=== PATIENT | female | born 1950 | race Caucasian/White ===

== ENCOUNTER 2023-09-04 17:38 | Inpatient (IN) ==
--- NOTE | 2023-09-04 18:23 | XRay Report ---
XR chest 1V not portable HISTORY: 72 years-old Female Sepsis acute sepsis COMPARISON: None TECHNIQUE: PA view of the chest FINDINGS: Cardiac silhouette is enlarged. Mild linear subsegmental left basilar and right midlung atelectasis v ersus scarring. No pneumothorax, pleural effusion or airspace operation. Degenerative changes of the shoulders and spine. IMPRESSION: No acute process. ACT 112: Negative or not required by law. The above report was generated using voice recognition software. It may contain grammatical, syntax o r spelling errors. Electronically signed by: Sebastian Nicole M.D. 09/04/2023 6:22 PM
[2023-09-04 19:02] LABS: Basophils # (auto) 0.03 K/uL (0.00-0.20); Basophils % (auto) 0.3 %; Eosinophils # (auto) 0.09 K/uL (0.00-0.50); Eosinophils % (auto) 0.8 %; Hematocrit (blood only) 44.8 % (37.0-47.0); Hemoglobin 14.4 g/dl (12.0-16.0); Immature Granulocytes # (auto) 0.06 K/uL (0.01-0.20); Immature Granulocytes % (auto) 0.6 %; Lymphocytes # (auto) 1.04 K/uL (1.20-3.40); Lymphocytes % (auto) 9.6 %; Mean Corpuscular Hemoglobin 28.9 pg (25.0-34.0); Mean Corpuscular Hgb Conc 32.1 g/dL (32.0-36.0); Mean Platelet Volume 10.4 fL (9.4-12.4); Monocytes # (auto) 1.07 K/uL (0.11-0.59); Monocytes % (auto) 9.9 %; Neutrophils # (auto) 8.57 K/uL (1.40-6.50); Neutrophils % (auto) 78.8 %; Platelet Count 334 K/uL (130-400); RDW Coefficient of Variation 14.6 % (11.5-14.5); Red Blood Count 4.98 M/uL (4.20-5.40); White Blood Count 10.86 K/ul (4.8-10.8)
--- NOTE | 2023-09-04 19:22 | Emergency Department Note ---
Impression & Plan Cellulitis of right lower leg, COPD with acute exacerbation, Elevated troponin, Elevated brain natriuretic peptide (BNP) level, Renal insufficiency ED Provider Note NAME: DANIEL ORTIZ AGE: 72 SEX: F ARRIVES VIA: Walk-In INFORMANT: Patient ED PROVIDER(S): Naseem Shanks MD CHIEF COMPLAINT: Shortness of breath, skin infection, referred. PLAN: Disposition: Admit MEDICAL DECISION MAKING: The patient is a pleasant 72-year-old woman with a past medical history of COPD not on home oxygen, hypertension who presents to the emergency department via walk-in, referred by her PCP office after being seen today for shortness of breath over the past week worsening over the past several days not improving with her home nebulizer treatment as well as worsening redness, swelling and pain of her right lower leg. The patient denies any recent fevers, chills. She denies any significant sputum production but does feel increased tightness in her chest. She denies nausea, vomiting, diarrhea or urinary symptoms. Both the patient and her reports that her work of breathing is not normal for her. Of note, the patient did arrive to emergency department during time of high volume, acuity and prolonged emergency department waiting times. Critical pathways initiated from triage. On my evaluation the patient is no acute distress, afebrile with stable vital signs. O2 saturation is in the low 90s on room air. She has wheezes with prolonged expiratory phase of bilateral lung plata. She has an approximate 8 cm area of erythema warmth and tenderness of the right lower leg that is circumferential around the calf with surrounding pitting edema and induration. There is serous weeping without purulent drainage or discrete area of fluctuance. WBC 10.8 K, nonspecific with neutrophil predominance though no left shift. H/H and platelets within normal limits. Chemistry without metabolic acidosis. Creatinine 1.29 without prior for comparison. Lactic acid 1.3, within normal limits. Magnesium is 1.2 with IV repletion initiated. LFTs are unremarkable. Initial high-sensitivity troponin is 22.8 with delta 2-hour high-sensitivity troponin 22.1, essentially unchanged. BNP is elevated to 86, nonspecific but consistent with the patient's hypervolemic appearance. Procalcitonin was not elevated. Respiratory bio fire was negative. CTA of the chest was performed and was negative for PE. Note is made of small pericardial effusion that is likely incidental. Small left pleural effusion is noted. Given the patient's rapidly evolving right lower leg cellulitis patient does agree with plan for admission for further management. Blood culture had been obtained and empiric treatment initiated with Zosyn and daptomycin. Additional treatment for COPD flare provided with Solu-Medrol and DuoNeb. Given unilateral increased swelling of the right lower extremity right lower extremity ultrasound was ordered and is pending. Case was discussed with [place]. [place] [facility] [place], who will evaluate the patient for admission. US negative for DVT. Further management per admitting team. Triage Nursing notes reviewed and agree them. Prior/external medical records reviewed Vital Signs: reviewed Differential diagnosis: Cellulitis, abscess, MRSA infection, DVT, necrotizing fasciitis, dermatitis, drug eruption, allergic reaction, as well as other pathologies. ER treatment provided: See below. Diagnostics interpreted by me: ECG: Normal sinus rhythm, 77 bpm, no ectopy, no overt ST elevation or depression, QTc 4 2, QRS 68. Cardiac Monitoring: An order for continuous cardiac monitoring was placed and demonstrated Normal sinus rhythm, 77 bpm, no ectopy. Laboratory studies: See below Imaging studies: See below Consultation(s): Case was discussed with Dr. Hubbard [facility] [place], who will evaluate the patient for admission. HPI: The patient is a pleasant 72-year-old woman with a past medical history of COPD not on home oxygen, hypertension who presents to the emergency department via walk-in, referred by her PCP office after being seen today for shortness of breath over the past week worsening over the past several days not improving with her home nebulizer treatment as well as worsening redness, swelling and pain of her right lower leg. The patient denies any recent fevers, chills. She denies any significant sputum production but does feel increased tightness in her chest. She denies nausea, vomiting, diarrhea or urinary symptoms. Both the patient and her reports that her work of breathing is not normal for her. ROS: See above HPI for pertinent positives & negatives. A total of 10 systems reviewed and were otherwise negative. VITALS:See Below GENERAL: Awake, alert, fatigued-appearing, in no distress, BMI 44.4 HENT: Normocephalic, atraumatic. Oropharynx unremarkable. EYES: Normal conjunctiva. Sclera non-icteric. NECK: Supple. No nuchal rigidity. FROM. No JVD. RESPIRATORY: Wheezes with prolonged expiratory phase of bilateral lung plata. CARDIAC: Regular rate, normal rhythm. Extremities warm and well perfused. Pulses equal. ABDOMEN: Soft, non-distended. No tenderness to palpation. No rebound or guarding. No masses. RECTAL: Deferred. MUSCULOSKELETAL: Chest examination reveals no tenderness. The back is symmetrical on inspection without obvious abnormality. There is no CVA tenderness to palpation. No joint edema. LOWER EXTREMITIES: 2+ pitting edema of RLE with approximate 8 cm area of erythema warmth and tenderness of the right lower leg that is circumferential around the calf with surrounding pitting edema and induration. There is serous weeping without purulent drainage or discrete area of fluctuance. NEURO: Normal sensorium. No sensory or motor deficits noted. SKIN: No rash or jaundice noted. Naseem Shanks MD Past Med/Surg History Medical History Hypertension COPD (chronic obstructive pulmonary disease) Social History Smoking Status: Never smoker Hx Alcohol Use: No Hx Substance Use: No Preferred Language: Swedish Communication Ability: Effective Tree Killer Required: No Beliefs That Will Affect Care: None Current Living Situation: Spouse Feels Safe at Home: Yes Safety Concerns: Feels Safe At This Time Assistive Devices: Cane and Walker Allergies Allergies Allergy/AdvReac Type Severity Reaction Status Date / Time telmisartan [From Micardis] AdvReac Intermediate Gastrointestinal Unverified 09/04/23 20:19 Upset Home Meds Home Medications Medication Instructions Recorded Confirmed albuterol sulfate 90 mcg/actuation See Rx Instructions .Route .COMPLEX 09/04/23 09/04/23 aerosol inhaler allopurinol 100 mg tablet 100 mg PO DAILY 09/04/23 09/04/23 dapagliflozin propanediol 5 mg 5 mg PO DAILY 09/04/23 09/04/23 tablet (Farga) duloxetine 30 mg capsule,delayed 30 mg PO DAILY 09/04/23 09/04/23 release furosemide 20 mg tablet 20 mg PO DAILY PRN Fluid Retention 09/04/23 09/04/23 losartan 50 mg tablet 50 mg PO DAILY 09/04/23 09/04/23 metoprolol tartrate 50 mg tablet 50 mg PO BID 09/04/23 09/04/23 Results & Data (ED) Vital Signs Vital Signs - 24 hr 09/04/23 17:54 09/04/23 20:06 09/04/23 22:11 Temperature 36.9 C Temperature Source Temporal Artery Scan Pulse Rate 100 H Pulse Rate [Right Finger] 77 101 H Pulse Rate from SpO2 Sensor Respiratory Rate 24 19 22 Respiratory Effort / Characteristics Non-Labored Spontaneous Non-Labored Spontaneous Respiratory Depth Normal Normal Blood Pressure 174/85 H Blood Pressure [Right Arm] 156/97 H 137/100 Blood Pressure Mean 114 Blood Pressure Mean [Right Arm] 116 112 Blood Pressure Position [Right Arm] Semi-fowlers Pulse Oximetry 95 92 91 Oxygen Delivery Method Room Air Room Air Room Air Sepsis Recent Fever Within 48 Hours No Sepsis New/Unexplained Change in Mental Status N/A Sepsis Action Taken by Nursing No Action Required 09/04/23 23:01 09/05/23 00:00 Temperature Temperature Source Pulse Rate 109 H Pulse Rate [Right Finger] Pulse Rate from SpO2 Sensor 106 H Respiratory Rate 26 H Respiratory Effort / Characteristics Respiratory Depth Blood Pressure 130/99 Blood Pressure [Right Arm] Blood Pressure Mean 110 Blood Pressure Mean [Right Arm] Blood Pressure Position [Right Arm] Pulse Oximetry 92 Oxygen Delivery Method Sepsis Recent Fever Within 48 Hours Sepsis New/Unexplained Change in Mental Status Sepsis Action Taken by Nursing Laboratory Data Attestation: I reviewed the patient's lab results. 09/04/23 18:41 09/04/23 18:41 Lab Results 09/04/23 09/04/23 09/04/23 Range/Units 18:41 20:40 20:56 WBC 10.86 H (4.8-10.8) K/ul RBC 4.98 (4.20-5.40) M/uL Hgb 14.4 (12.0-16.0) g/dl POC Hgb 15.3 (12.0-16.0) g/dl Hct 44.8 (37.0-47.0) % POC Hct 45 (37-47) % MCV 90.0 (80.0-100.0) fL MCH 28.9 (25.0-34.0) pg MCHC 32.1 (32.0-36.0) g/dL RDW Std Deviation 48.0 H (36.4-46.3) fL RDW Coeff of Evan 14.6 H (11.5-14.5) % Plt Count 334 (130-400) K/uL MPV 10.4 (9.4-12.4) fL Immature Gran % (Auto) 0.6 % Neut % (Auto) 78.8 % Lymph % (Auto) 9.6 % [place] % (Auto) 9.9 % Eos % (Auto) 0.8 % Baso % (Auto) 0.3 % Neut # (Auto) 8.57 H (1.40-6.50) K/uL Lymph # (Auto) 1.04 L (1.20-3.40) K/uL [place] # (Auto) 1.07 H (0.11-0.59) K/uL Eos # (Auto) 0.09 (0.00-0.50) K/uL Baso # (Auto) 0.03 (0.00-0.20) K/uL Immature Gran # (Auto) 0.06 (0.01-0.20) K/uL PT 11.0 (9.0-12.0) Seconds INR 1.0 (0.9-1.1) APTT 27 (21-31) Seconds PTT Ratio 1.0 POC Sodium 140 (135-144) mmol/L Sodium 141 (136-145) mmol/L POC Potassium 4.6 (3.3-5.0) mmol/L Potassium 4.1 (3.5-5.1) mmol/L POC Chloride 99 L (101-112) mmol/L Chloride 100 (98-107) mmol/L Carbon Dioxide 29 (21-32) mmol/L POC Total CO2 34 H (24-31) mmol/L Anion Gap 12 H (3-11) POC Anion Gap 13.0 L (16-25) mmol/L POC BUN 25 H (7-18) mg/dl BUN 23 (6-23) mg/dl Creatinine 1.29 H (0.6-1.2) mg/dl POC Creatinine 1.3 (0.6-1.3) mg/dl Est Cr Clr Drug Dosing 48.6 ml/min Est GFR ( Amer) 48.2 ml/min Est GFR (Non-Af Amer) 41.6 ml/min BUN/Creatinine Ratio 17.8 (10-20) Glucose 103 H (70-99(Fasting)) mg/dl POC Glucose (other) 106 H (70-99) mg/dl Lactate 1.3 (0.4-2.0) mmol/L Calcium 10.2 (8.6-10.3) mg/dl POC Ioniz Calcium Felipe 1.14 (1.12-1.32) mmol/l Magnesium 1.2 L (1.7-2.4) mg/dl Total Bilirubin 0.6 (0.2-1.0) mg/dl AST 18 (13-39) U/L ALT 19 (7-52) U/L Alkaline Phosphatase 105 H (34-104) U/L Troponin I High Sens 22.8 H 22.1 H (0-14) pg/ml B-Natriuretic Peptide 286 H (0-100) pg/ml Total Protein 7.3 (6.0-8.3) gm/dl Albumin 3.8 (3.4-5.0) gm/dl Globulin 3.5 (2.5-4.0) gm/dl Albumin/Globulin Ratio 1.1 (0.9-2) Procalcitonin 0.07 (0-0.5) ng/ml Adenovirus (PCR) (NotDetected) B. pertussis DNA (PCR) (NotDetected) B.parapertussis DNA PCR (NotDetected) C. pneumoniae DNA (PCR) (NotDetected) Coronavirus OC43 (PCR) (NotDetected) Coronavirus HKU1 (PCR) (NotDetected) Coronavirus 229E (PCR) (NotDetected) SARS-CoV-2 (PCR) (NotDetected) Coronavirus NL63 (PCR) (NotDetected) Human Metapneumovir PCR (NotDetected) Influenza Type A (PCR) (NotDetected) Influenza Type B (PCR) (NotDetected) M. pneumoniae (PCR) (NotDetected) Parainfluenza 1 (PCR) (NotDetected) Parainfluenza 2 (PCR) (NotDetected) Parainfluenza 3 (PCR) (NotDetected) Parainfluenza 4 (PCR) (NotDetected) RSV (PCR) (NotDetected) Entero/Rhino (PCR) (NotDetected) 09/04/23 Range/Units 22:38 WBC (4.8-10.8) K/ul RBC (4.20-5.40) M/uL Hgb (12.0-16.0) g/dl POC Hgb (12.0-16.0) g/dl Hct (37.0-47.0) % POC Hct (37-47) % MCV (80.0-100.0) fL MCH (25.0-34.0) pg MCHC (32.0-36.0) g/dL RDW Std Deviation (36.4-46.3) fL RDW Coeff of Evan (11.5-14.5) % Plt Count (130-400) K/uL MPV (9.4-12.4) fL Immature Gran % (Auto) % Neut % (Auto) % Lymph % (Auto) % [place] % (Auto) % Eos % (Auto) % Baso % (Auto) % Neut # (Auto) (1.40-6.50) K/uL Lymph # (Auto) (1.20-3.40) K/uL [place] # (Auto) (0.11-0.59) K/uL Eos # (Auto) (0.00-0.50) K/uL Baso # (Auto) (0.00-0.20) K/uL Immature Gran # (Auto) (0.01-0.20) K/uL PT (9.0-12.0) Seconds INR (0.9-1.1) APTT (21-31) Seconds PTT Ratio POC Sodium (135-144) mmol/L Sodium (136-145) mmol/L POC Potassium (3.3-5.0) mmol/L Potassium (3.5-5.1) mmol/L POC Chloride (101-112) mmol/L Chloride (98-107) mmol/L Carbon Dioxide (21-32) mmol/L POC Total CO2 (24-31) mmol/L Anion Gap (3-11) POC Anion Gap (16-25) mmol/L POC BUN (7-18) mg/dl BUN (6-23) mg/dl Creatinine (0.6-1.2) mg/dl POC Creatinine (0.6-1.3) mg/dl Est Cr Clr Drug Dosing ml/min Est GFR ( Amer) ml/min Est GFR (Non-Af Amer) ml/min BUN/Creatinine Ratio (10-20) Glucose (70-99(Fasting)) mg/dl POC Glucose (other) (70-99) mg/dl Lactate (0.4-2.0) mmol/L Calcium (8.6-10.3) mg/dl POC Ioniz Calcium Felipe (1.12-1.32) mmol/l Magnesium (1.7-2.4) mg/dl Total Bilirubin (0.2-1.0) mg/dl AST (13-39) U/L ALT (7-52) U/L Alkaline Phosphatase (34-104) U/L Troponin I High Sens 22.2 H (0-14) pg/ml B-Natriuretic Peptide (0-100) pg/ml Total Protein (6.0-8.3) gm/dl Albumin (3.4-5.0) gm/dl Globulin (2.5-4.0) gm/dl Albumin/Globulin Ratio (0.9-2) Procalcitonin (0-0.5) ng/ml Adenovirus (PCR) Not Detected (NotDetected) B. pertussis DNA (PCR) Not Detected (NotDetected) B.parapertussis DNA PCR Not Detected (NotDetected) C. pneumoniae DNA (PCR) Not Detected (NotDetected) Coronavirus OC43 (PCR) Not Detected (NotDetected) Coronavirus HKU1 (PCR) Not Detected (NotDetected) Coronavirus 229E (PCR) Not Detected (NotDetected) SARS-CoV-2 (PCR) Not Detected (NotDetected) Coronavirus NL63 (PCR) Not Detected (NotDetected) Human Metapneumovir PCR Not Detected (NotDetected) Influenza Type A (PCR) Not Detected (NotDetected) Influenza Type B (PCR) Not Detected (NotDetected) M. pneumoniae (PCR) Not Detected (NotDetected) Parainfluenza 1 (PCR) Not Detected (NotDetected) Parainfluenza 2 (PCR) Not Detected (NotDetected) Parainfluenza 3 (PCR) Not Detected (NotDetected) Parainfluenza 4 (PCR) Not Detected (NotDetected) RSV (PCR) Not Detected (NotDetected) Entero/Rhino (PCR) Not Detected (NotDetected) Administered Medications Acetaminophen (Acetaminophen 325 Mg Tab) 650 mg PO Q4H PRN PRN Reason: pain/fever Stop: 10/05/23 00:13 Last Admin: 09/05/23 10:55 Dose: 650 mg Documented By: Admin: 09/05/23 02:45 Dose: 650 mg Documented By: PLF Albuterol (Albut/Ipratrop 3mg/0.5mg Neb 3 Ml Vial) 3 ml NEB Q4R PRN; Protocol PRN Reason: Shortness Of Breath Or Wheezing Stop: 10/05/23 02:59 Last Admin: 09/05/23 06:27 Dose: 3 ml Documented By: PEDRO LUIS Allopurinol (Allopurinol 100 Mg Tab) 100 mg PO DAILY [facility] Stop: 10/05/23 08:59 Last Admin: 09/05/23 08:09 Dose: 100 mg Documented By: SEBASTIEN Azithromycin (Azithromycin 250 Mg Tab) 250 mg PO QAM [facility] Stop: 09/12/23 08:59 Last Admin: 09/05/23 08:08 Dose: 250 mg Documented By: SEBASTIEN Duloxetine HCl (Duloxetine Hcl 30 Mg Cap) 30 mg PO DAILY [facility] Stop: 10/05/23 08:59 Last Admin: 09/05/23 08:09 Dose: 30 mg Documented By: SEBASTIEN Enoxaparin Sodium (Enoxaparin Inj 40 Mg/0.4 Ml Syr) 40 mg SQ QAM [facility] Stop: 10/05/23 08:59 Last Admin: 09/05/23 08:09 Dose: 40 mg Documented By: SEBASTIEN Daptomycin 450 mg/ Syringe 9 mls @ 4.5 mls/min IV Q24H [facility]; Protocol Stop: 09/06/23 20:29 Last Admin: 09/04/23 21:29 Dose: 4.5 mls/min Documented By: Losartan Potassium (Losartan Potassium 50 Mg Tab) 50 mg PO DAILY [facility] Stop: 10/05/23 08:59 Last Admin: 09/05/23 08:09 Dose: 50 mg Documented By: SEBASTIEN Metoprolol Tartrate (Metoprolol Tartrate 50 Mg Tab) 50 mg PO BID [facility] Stop: 10/05/23 08:59 Last Admin: 09/05/23 08:09 Dose: 50 mg Documented By: SEBASTIEN Miscellaneous (Order Awaiting Action: Dapagliflozin Propanediol [Farxiga] 5 Mg Table) 1 each N/A QS [facility] Stop: 10/05/23 07:59 Last Admin: 09/05/23 07:37 Dose: Not Given Documented By: SEBASTIEN Prednisone (Prednisone 20 Mg Tab) 60 mg PO DAILY [facility] Stop: 10/05/23 08:59 Last Admin: 09/05/23 08:09 Dose: 60 mg Documented By: SEBASTIEN Discontinued Medications Albuterol (Albut/Ipratrop 3mg/0.5mg Neb 3 Ml Vial) 3 ml NEB NOW STA; Protocol Stop: 09/04/23 20:31 Last Admin: 09/04/23 20:49 Dose: 3 ml Documented By: Piperacillin Sod/Tazobactam Sod (Zosyn) 4.5 gm in 100 mls @ 200 mls/hr IV NOW ONE Stop: 09/04/23 20:59 Last Infusion: 09/04/23 21:42 Dose: Infused Documented By: Admin: 09/04/23 20:52 Dose: 200 mls/hr Documented By: Magnesium Sulfate/Dextrose (Magnesium Sulfate / D5w) 1 gm in 100 mls @ 100 mls/hr IV Q1H [facility] Stop: 09/05/23 01:04 Last Infusion: 09/05/23 01:47 Dose: Infused Documented By: Admin: 09/05/23 00:14 Dose: 100 mls/hr Documented By: Infusion: 09/05/23 00:14 Dose: Infused Documented By: Admin: 09/04/23 23:19 Dose: 100 mls/hr Documented By: TOO Ioversol (Optiray 320 125ml) 117 ml IV ONCE ONE Stop: 09/04/23 21:44 Last Admin: 09/04/23 21:44 Dose: 117 ml Documented By: NIKOLAY Methylprednisolone (Methylprednisolone 125 Mg/2 Ml Vial) 125 mg IV NOW STA Stop: 09/04/23 20:31 Last Admin: 09/04/23 20:49 Dose: 125 mg Documented By: Imaging Data Radiologist's Impression: Chest X-Ray 09/04/23 17:56 XR chest 1V not portable HISTORY: 72 years-old Female Sepsis acute sepsis COMPARISON: None TECHNIQUE: PA view of the chest FINDINGS: Cardiac silhouette is enlarged. Mild linear subsegmental left basilar and right midlung atelectasis versus scarring. No pneumothorax, pleural effusion or airspace operation. Degenerative changes of the shoulders and spine. IMPRESSION: No acute process. ACT 112: Negative or not required by law. The above report was generated using voice recognition software. It may contain grammatical, syntax or spelling errors. Electronically signed by: Sebastian Nicole M.D. 09/04/2023 6:22 PM Chest CTA 09/04/23 20:30 Exam(s): CTA CHEST IV Amt: 117 ml optiray 320 EXAM: CT Angiography Chest With Intravenous Contrast CLINICAL HISTORY: Reason for exam: sob, r/o PE. TECHNIQUE: Axial computed tomographic angiography images of the chest with intravenous contrast. CTDI is 37.9 mGy and DLP is 824.87 mGy-cm. Automated exposure control was utilized for the study. A dose lowering technique was utilized adhering to the principles of ALARA. MIP reconstructed images were created and reviewed. COMPARISON: No relevant prior studies available. FINDINGS: Pulmonary arteries: Unremarkable. No acute pulmonary embolism. Aorta: Atherosclerotic changes of the aorta. No thoracic aortic aneurysm. Lungs: Atelectasis at the lung bases. No mass. Pleural space: Small LEFT pleural effusion. No pneumothorax. Heart: Small pericardial effusion. Cardiomegaly. No evidence of RV dysfunction. Bones/joints: Degenerative changes of the spine. No acute fracture. No dislocation. Soft tissues: Unremarkable. Lymph nodes: Unremarkable. No enlarged lymph nodes. IMPRESSION: 1. No acute pulmonary embolism. 2. Small pericardial effusion. 3. Small LEFT pleural effusion. Electronically signed by: Coy Tavarez MD 09/04/23 22:08 PM Discharge Plan Visit Data Chief Complaint: Swelling/Edema to Extremity Stated Complaint: OXYGEN/80, LOWER RT LEG BLISTERS/PAIN/EDEMA ED Provider: Naseem Shanks Discharge Problem: Cellulitis of right lower leg, COPD with acute exacerbation, Elevated troponin, Elevated brain natriuretic peptide (BNP) level, Renal insufficiency Patient Disposition: Admitted As Inpatient Discharge Instructions Interventions: ED Discharge Assessment Last Done: 09/05/23 02:44
[2023-09-04 19:27] LABS: Partial Thromboplastin Time 27 Seconds (21-31)
[2023-09-04] MEDS ORDERED: methylPREDNISolone 125 MG/2 ML VIAL IV STA (20:30)
[2023-09-04] MEDS ORDERED: ALBUT/IPRATROP 3MG/0.5MG NEB 3 ML VIAL NEB STA (20:30)
[2023-09-04] MEDS ORDERED: PIPERACILLIN/TAZOBACTAM 4.5 GM/100 ML BAG IV ONE (20:30)
[2023-09-04 21:12] LABS: iSTAT Creatinine 1.3 mg/dl (0.6-1.3); iSTAT Hemoglobin 15.3 g/dl (12.0-16.0); iSTAT Ionized Calcium 1.14 mmol/l (1.12-1.32); iSTAT Potassium 4.6 mmol/L (3.3-5.0)
[2023-09-04] MEDS: DAPTOmycin 450 MG in SYRINGE 0 ML IV SCH (21:29)
[2023-09-04 21:39] LABS: Albumin Level 3.8 gm/dl (3.4-5.0); Bilirubin,Total 0.6 mg/dl (0.2-1.0); Calcium 10.2 mg/dl (8.6-10.3); Magnesium 1.2 mg/dl (1.7-2.4); Potassium 4.1 mmol/L (3.5-5.1)
[2023-09-04] MEDS ORDERED: OPTIRAY 320 125ml IV ONE (21:43)
[2023-09-04 21:45] LABS: Albumin Globulin Ratio 1.1 (0.9-2); BUN Creatinine Ratio 17.8 (10-20); Creatinine Clr Calc Pharmacy 48.6 ml/min; Est GFR (African American) 48.2 ml/min; Est GFR (Non-African American) 41.6 ml/min; Globulin 3.5 gm/dl (2.5-4.0); Total Protein 7.3 gm/dl (6.0-8.3)
[2023-09-04 22:04] LABS: Troponin I High Sensitivity 22.8 pg/ml (0-14)
--- NOTE | 2023-09-04 22:09 | CT Scan Report ---
Exam(s): CTA CHEST IV Amt: 117 ml optiray 320 EXAM: CT Angiography Chest With Intravenous Contrast CLINICAL HISTORY: Reason for exam: sob, r/o PE. TECHNIQUE: Axial computed tomographic angiography images of the chest with intravenous contrast. CTDI is 37.9 mGy and DLP is 824.87 mGy-cm. Automated exposure control was utilized for the study. A dose lowering technique was utilized adhering to the principles of ALARA. MIP reconstructed images were created and reviewed. COMPARISON: No relevant prior studies available. FINDINGS: Pulmonary arteries: Unremarkable. No acute pulmonary embolism. Aorta: Atherosclerotic changes of the aorta. No thoracic aortic aneurysm. Lungs: Atelectasis at the lung bases. No mass. Pleural space: Small LEFT pleural effusion. No pneumothorax. Heart: Small pericardial effusion. Cardiomegaly. No evidence of RV dysfunction. Bones/joints: Degenerative changes of the spine. No acute fracture. No dislocation. Soft tissues: Unremarkable. Lymph nodes: Unremarkable. No enlarged lymph nodes. IMPRESSION: 1. No acute pulmonary embolism. 2. Small pericardial effusion. 3. Small LEFT pleural effusion. Electronically signed by: Coy Tavarez MD 09/04/23 22:08 PM
[2023-09-04] MEDS: MAGNESIUM SULFATE / D5W 1 GM/100 ML BAG IV SCH (23:19)
[2023-09-04 23:37] LABS: Adenovirus PCR Not Detected (NotDetected); Bordetella parapertussis PCR Not Detected (NotDetected); Bordetella pertussis PCR Not Detected (NotDetected); Chlamydia pneumoniae PCR Not Detected (NotDetected); Coronavirus 229E PCR Not Detected (NotDetected); Coronavirus CoV-2 (COVID19)PCR Not Detected (NotDetected); Coronavirus HKU1 PCR Not Detected (NotDetected); Coronavirus NL63 PCR Not Detected (NotDetected); Coronavirus OC43PCR Not Detected (NotDetected); Human Metapneumovirus PCR Not Detected (NotDetected); Influenza A PCR Not Detected (NotDetected); Influenza B PCR Not Detected (NotDetected); Mycoplasma pneumoniae PCR Not Detected (NotDetected); Parainfluenza Virus 1 PCR Not Detected (NotDetected); Parainfluenza Virus 2 PCR Not Detected (NotDetected); Parainfluenza Virus 3 PCR Not Detected (NotDetected); Parainfluenza Virus 4 PCR Not Detected (NotDetected); Respiratory Syncytial VirusPCR Not Detected (NotDetected); Rhinovirus/Enterovirus PCR Not Detected (NotDetected)
--- NOTE | 2023-09-04 23:42 | History & Physical Report ---
Date of Service September 04, 2023 Assessment & Plan (1) COPD with acute exacerbation: Plan: Pt is a 72 yo female with PMH of COPD, fluid retention, CKD (stage unknown), and HTN presenting due to increasing SOB and right LE infection. Right LE cellulitis - began in July with small blister - per pt, was dx with DM many years ago and was on metformin for 10 yrs; she was then told she was not diabetic and the metformin is what caused her kidney decline - xrays ordered to look for signs of osteo d/t length of infection - RLE doppler ordered to r/o DVT - s/p zosyn and dapto in the ER; will continue dapto upon admission pending woun d and blood cx - will defer diuresis until response of antibiotic noted; may need diuresis if RLE does not improve as expected with ABX therapy COPD exacerbation - acute on chronic, no PFTs available - per pt, hx of recent PNA in Jul 2023 treated with doxycycline - no prior hospitalizations for COPD per pt - CXR WNL; chest CTA showed small left pleural effusion, no signs of PNA - RVP neg - WBC 10.86, procal 0.07, BNP 286; do not suspect active pulmonary bacterial infection - continue with duoneb PRN, prednisone daily, and azithromycin x5 days - encouraged outpatient discussion with PCP to determine if pt needs PFTs and/or addition of controller inhaler Elevated trop - stable at 22 after 3 draws - suspect demand ischemia in the setting of COPD exacerbation - will recheck in AM to ensure downtrending HTN - continue home losartan 50 mg, metoprolol 50 mg BID CKD - unsure of stage - Cr 1.29 upon admission - continue home farxiga - trend BMP Hypomagnesemia - 1.2 upon admission - repleted with 2g in ER - recheck in AM Hx of gout - continue allopurinol 100 mg daily Depression - continue home duloxetine 30 mg daily Diet: heart healthy VTE ppx: lovenox Code: full Dispo: admit to med/surg (2) Cellulitis of right lower leg: (3) Elevated troponin: (4) Renal insufficiency: (5) Depression: (6) Gout: History of Present Illness Chief Complaint: SOB, RLL infection Primary Care Provider: Diogo Johnston Pt is a 72 yo female with PMH of COPD, fluid retention, CKD (stage unknown), and HTN presenting due to increasing SOB and right LE infection. Pt explains that she has been dealing with COPD for many years. In July, she was hospitalized for SOB and found to have pneumonia. This was treated with doxycycline. About 2-3 weeks ago, she noticed an increase in her SOB. It gets worse with activity, but she says she is not that active. It has progressively gotten worse. She does use nebulized and inhaled albuterol at home. No other inhalers. She does not use oxygen at home. She has never smoked. She has never been hospitalized for her COPD before. During her hospitalization in July, it was noted that she had a small blister on RLE. She was told not to break this. After she was discharged home, she woke up one morning and noticed that the blister had spread across the entire front of her leg. It was accidentally broken after she bumped her leg on her walker. Since then, the redness and drainage has spread. It is slightly painful. She believes this infection may be in relation to not taking her water pill for 11 days (she takes it as needed as to not harm her kidneys). In the ER, pt was hemodynamically stable with minimal tachycardia (100). Pt received methylpred 125mg x1, duoneb x1, zosyn x1, and dapto x1. She was also given mag 1g x2. Allergies Allergy/AdvReac Type Severity Reaction Status Date / Time telmisartan [From Micardis] AdvReac Intermediate Gastrointestinal Unverified 09/04/23 20:19 Upset Home Medications Medication Instructions Recorded Confirmed Type albuterol sulfate 90 mcg/actuation See Rx Instructions .Route .COMPLEX 09/04/23 09/04/23 History aerosol inhaler allopurinol 100 mg tablet 100 mg PO DAILY 09/04/23 09/04/23 History dapagliflozin propanediol 5 mg 5 mg PO DAILY 09/04/23 09/04/23 History tablet (Farxiga) duloxetine 30 mg capsule,delayed 30 mg PO DAILY 09/04/23 09/04/23 History release furosemide 20 mg tablet 20 mg PO DAILY PRN Fluid Retention 09/04/23 09/04/23 History losartan 50 mg tablet 50 mg PO DAILY 09/04/23 09/04/23 History metoprolol tartrate 50 mg tablet 50 mg PO BID 09/04/23 09/04/23 History Past Med/Surg History Medical History Hypertension COPD (chronic obstructive pulmonary disease) Social History Smoking Status: Never smoker Hx Alcohol Use: No Hx Substance Use: No Preferred Language: Ghanaian Communication Ability: Effective Peanut Blancher Required: No Beliefs That Will Affect Care: None Current Living Situation: Spouse Feels Safe at Home: Yes Safety Concerns: Feels Safe At This Time Assistive Devices: Cane and Walker Review of Systems Review of Systems: As per HPI Physical Exam Physical Exam: Constitutional: well appearing, no acute distress HEENT: normocephalic, no conjunctival injection CV: RRR, no murmur, no LE edema Respiratory: CTA bilaterally but decreased breath sounds throughout. No rhonchi, wheezes, or crackles. No increased work of breathing GI: soft, nondistended, nontender, + bowel sounds MSK: no gross deformities noted Skin: RLE edema and erythema noted from ankle to mid calf. Serous drainage noted w/ scattered purulence. Neuro: alert, oriented, no FND noted Psych: mood and affect congruent Results & Data Results & Data Vital Signs (Past 12 Hours) Vital Signs Temp Pulse Pulse Resp BP BP Pulse Ox 09/04/23 22:11 101 H 22 137/100 91 09/04/23 20:06 77 19 156/97 H 92 09/04/23 17:54 36.9 C 100 H 24 174/85 H 95 O2 Del Method 09/04/23 22:11 Room Air 09/04/23 20:06 Room Air 09/04/23 17:54 Room Air Supervising Physician Co-Signing Physician Notes Attending addendum: I have physically seen this patient, have supervised the medical residents activities, and agree with the H&P unless as otherwise noted. Assessment and Plan: COPD exacerbation- Recent pneumonia in 08/04 treated with doxycycline Duonebs every 4 hours while awake and every 2 hours when necessary. Azithromycin 500 mg IV daily Prednisone taper Right lower extremity cellulitis- Continue daptomycin IV and Zosyn IV begun in the ED Right lower extremity Doppler ordered to assess for possible DVT Order x-rays to assess for possible osteo myelitis May need diuresis to further improvement Elevated troponin/hypertension- Troponin 22.2 on admission, with repeat pending Continue losartan and metoprolol as noted Remaining orders and notations as noted Resident Activity Tracking Resident Involvement: Resident Care Provided Care Provided: Adult Hospital Medicine
[2023-09-05] MEDS ORDERED: POLYETHYLENE (MIRALAX) 17 GM PACK PO PRN (00:14)
[2023-09-05] MEDS: MAGNESIUM SULFATE / D5W 1 GM/100 ML BAG IV SCH ×3 (00:14→17:27)
[2023-09-05] MEDS ORDERED: ONDANSETRON INJ 2 MG/ML 2 ML VIAL IV PRN (00:14)
[2023-09-05] MEDS ORDERED: ALBUT/IPRATROP 3MG/0.5MG NEB 3 ML VIAL NEB PRN (00:14)
[2023-09-05] MEDS ORDERED: MELATONIN 3 MG TAB PO PRN (00:14)
--- NOTE | 2023-09-05 01:54 | Ultrasound Report ---
Exam(s): US VENOUS RIGHT LOWER EXTREMITY EXAM: US Duplex Right Lower Extremity Veins CLINICAL HISTORY: Reason for exam: RLE edema. TECHNIQUE: Real-time duplex ultrasound scan of the right lower extremity veins integrating B-mode two-dimensional vascular structure, Doppler spectral analysis, color flow Doppler imaging and compression. COMPARISON: No relevant prior studies available. FINDINGS: Deep veins: Unremarkable. No DVT in the visualized common femoral, femoral, proximal deep femoral or popliteal veins. The veins demonstrate normal color flow, are normally compressible, with normal phasic flow and/or augmentation response. Soft tissues: No acute findings. No popliteal cyst. IMPRESSION: No evidence of the right lower extremity deep venous thrombosis. Electronically signed by: Erick Hwang M.D. 09/05/23 01:53 AM
[2023-09-05] MEDS: ACETAMINOPHEN 325 MG TAB PO PRN ×3 (02:45→18:05)
[2023-09-05] MEDS ORDERED: MICONAZOLE NITRATE POWDER 85 GM EXT PRN (05:42)
--- NOTE | 2023-09-05 06:50 | XRay Report ---
XR tibia fibula RT 2V CLINICAL HISTORY: cellulitis, r/o osteo COMPARISON: None FINDINGS: No fracture within the right tibia or fibula is identified. No bony erosions are present. Moderate to severe tricompartmental osteoarthritis within the right knee is present. This is most pro nounced within the medial and patellofemoral compartments. Diffuse right lower leg soft tissue swelli ng is present. There is no radiographic evidence for soft tissue gas. IMPRESSION: 1. No evidence for osteomyelitis within the right tibia or fibula. 2. Diffuse right lower leg soft tissue swelling. ACT 112: Negative or not required by law. Electronically signed by: Agustin Del Rio M.D. 09/05/2023 6:49 AM
--- NOTE | 2023-09-05 07:49 | XRay Report ---
XR ankle RT min 3V routine HISTORY: 72 years-old Female cellulitis, r/o osteo acute pain and swelling of the right ankle and lo wer leg COMPARISON: Tibia and fibular radiographs of same day TECHNIQUE: 3 views of the right ankle FINDINGS: Diffuse soft tissue swelling. There is mild osteoarthritis of the ankle with moderate osteoarthritis of the midfoot. No acute fracture, dislocation or osseous erosion. Arterial calcifications. IMPRESSION: 1. No acute osseous abnormality. 2. Diffuse soft tissue swelling. ACT 112: Negative or not required by law. The above report was generated using voice recognition software. It may contain grammatical, syntax o r spelling errors. Electronically signed by: Sebastian Nicole M.D. 09/05/2023 7:47 AM
[2023-09-05] MEDS: AZITHROMYCIN 250 MG TAB PO SCH (08:08)
[2023-09-05] MEDS: allopurinoL 100 MG TAB PO SCH (08:09)
[2023-09-05] MEDS: LOSARTAN POTASSIUM 50 MG TAB PO SCH (08:09)
[2023-09-05] MEDS: ENOXAPARIN INJ 40 MG/0.4 ML SYR SQ SCH (08:09)
[2023-09-05] MEDS: DULoxetine HCL 30 MG CAP PO SCH (08:09)
[2023-09-05] MEDS: predniSONE 20 MG TAB PO SCH (08:09)
[2023-09-05] MEDS: METOPROLOL TARTRATE 50 MG TAB PO SCH ×2 (08:09→20:02)
[2023-09-05 09:57] LABS: Appearance Urine Clear (Clear); Bilirubin Urine Negative (Negative); Blood Urine Negative (Negative); Color Urine Yellow; Epithelial Cell Urine Auto >30 /lpf (0-5); Glucose Urine UA 2+ (Negative); Ketones Urine Negative (Negative); Leukocyte Esterase Urine Negative (Negative); Nitrite Urine Negative (Negative); Protein Urine Trace (Negative); RBC Urine Automated 0-4 /hpf (0-4); Specific Gravity Urine > 1.045 (1.000-1.030); Urobilinogen Urine Negative (Negative)
[2023-09-05 10:24] LABS: Bacteria Urine Automated 1+ (Negative)
--- NOTE | 2023-09-05 11:22 | Electrocardiogram Report ---
Test Reason : Blood Pressure : / mmHG Vent. Rate : 077 BPM Atrial Rate : 077 BPM P-R Int : 130 ms QRS Dur : 068 ms QT Int : 356 ms P-R-T Axes : 002 -25 010 degrees QTc Int : 402 ms Normal sinus rhythm Normal ECG No previous ECGs available Confirmed by Jaylon Soler ([id number]) on 09/05/2023 11:21:43 AM Referred By: REFERRED SELF Confirmed By:Derrell Soler
--- NOTE | 2023-09-05 15:40 | Hospitalist Progress Note ---
Date of Service September 05, 2023 Assessment & Plan (1) Cellulitis of right lower leg: (2) COPD with acute exacerbation: (3) Elevated troponin: (4) Elevated brain natriuretic peptide (BNP) level: (5) Renal insufficiency: (6) Depression: (7) Gout: Plan Right LE cellulitis - began in July with small blister - per pt, was dx with DM many years ago and was on metformin for 10 yrs; she was then told she was not diabetic and the metformin is what caused her kidney decline - xrays negative for osteomyelitis - RLE doppler ruled out DVT - s/p zosyn and dapto in the ER; now on daptomycin Blood cultures and wound culture pending Improving with antibiotics Improved swelling, redness, pain COPD exacerbation - acute on chronic, no PFTs available - per pt, hx of recent PNA in Jul 2023 treated with doxycycline - no prior hospitalizations for COPD per pt - CXR WNL; chest CTA showed small left pleural effusion, no signs of PNA - RVP neg - WBC 10.86, procal 0.07, BNP 286; do not suspect active pulmonary bacterial infection - continue with duoneb PRN, prednisone daily, and azithromycin x5 days - encouraged outpatient discussion with PCP to determine if pt needs PFTs and/or addition of controller inhaler Elevated trop - stable at 22 after 3 draws - suspect demand ischemia in the setting of COPD exacerbation HTN - continue home losartan 50 mg, metoprolol 50 mg BID CKD - unsure of stage - Cr 1.29 upon admission - continue home farxiga - trend BMP Hypomagnesemia - 1.2 upon admission - repleted with 2g in ER Repleted with another 2 g today No a.m. labs available today - recheck in AM Hx of gout - continue allopurinol 100 mg daily Depression - continue home duloxetine 30 mg daily Diet: heart healthy VTE ppx: lovenox Code: full Admission and Anticipated Discharge Date Admission Date: September 05, 2023 Subjective Patient says that her right leg is feeling much better. She feels much better overall as well. Denies chest pain, shortness of breath. Review of Systems Review of Systems: All systems reviewed & are unremarkable except as noted in Subjective Physical Exam Physical Exam: General: Awake, conversant Heart: S1, S2/regular rate and rhythm, no murmur rubs or gallops Lungs: Diminished breath sounds bilaterally. No wheezing heard.. Normal effort Abdomen: Soft/nontender/nondistended. No hepatosplenomegaly Extremities: No clubbing/cyanosis. No edema on the left leg. Right leg is red and inflamed looking. However fading is noted towards the margin. Behavior: Appropriate, cooperative Results & Data Results & Data Vital Signs (Past 12 Hours) Vital Signs Temp Pulse Resp BP Pulse Ox O2 Del Method O2 Flow Rate 09/05/23 09:41 Nasal Cannula 4 09/05/23 07:25 36.7 C 122 H 18 150/80 H 93 Nasal Cannula 3 09/05/23 06:30 106 H 22 93 Nasal Cannula 4 09/05/23 06:20 103 H 93 Nasal Cannula 4 09/05/23 06:17 36.7 C 118 H 20 156/96 H 92 Nasal Cannula 4 Laboratory Results Abnormal lab results 09/04/23 09/04/23 09/04/23 Range/Units 18:41 20:40 20:56 WBC 10.86 H (4.8-10.8) K/ul RDW Std Deviation 48.0 H (36.4-46.3) fL RDW Coeff of Evan 14.6 H (11.5-14.5) % Neut # (Auto) 8.57 H (1.40-6.50) K/uL Lymph # (Auto) 1.04 L (1.20-3.40) K/uL [place] # (Auto) 1.07 H (0.11-0.59) K/uL POC Chloride 99 L (101-112) mmol/L POC Total CO2 34 H (24-31) mmol/L Anion Gap 12 H (3-11) POC Anion Gap 13.0 L (16-25) mmol/L POC BUN 25 H (7-18) mg/dl Creatinine 1.29 H (0.6-1.2) mg/dl Glucose 103 H (70-99(Fasting)) mg/dl POC Glucose (other) 106 H (70-99) mg/dl Magnesium 1.2 L (1.7-2.4) mg/dl Alkaline Phosphatase 105 H (34-104) U/L Troponin I High Sens 22.8 H 22.1 H (0-14) pg/ml B-Natriuretic Peptide 286 H (0-100) pg/ml Ur Specific [place] (1.000-1.030) Urine Protein (Negative) Urine Glucose (UA) (Negative) U Epithel Cells (Auto) (0-5) /lpf Urine Bacteria (Auto) (Negative) 09/04/23 09/05/23 09/05/23 Range/Units 22:38 07:06 08:23 WBC (4.8-10.8) K/ul RDW Std Deviation (36.4-46.3) fL RDW Coeff of Evan (11.5-14.5) % Neut # (Auto) (1.40-6.50) K/uL Lymph # (Auto) (1.20-3.40) K/uL [place] # (Auto) (0.11-0.59) K/uL POC Chloride (101-112) mmol/L POC Total CO2 (24-31) mmol/L Anion Gap (3-11) POC Anion Gap (16-25) mmol/L POC BUN (7-18) mg/dl Creatinine (0.6-1.2) mg/dl Glucose (70-99(Fasting)) mg/dl POC Glucose (other) (70-99) mg/dl Magnesium (1.7-2.4) mg/dl Alkaline Phosphatase (34-104) U/L Troponin I High Sens 22.2 H 21.4 H (0-14) pg/ml B-Natriuretic Peptide (0-100) pg/ml Ur Specific [place] > 1.045 H (1.000-1.030) Urine Protein Trace H (Negative) Urine Glucose (UA) 2+ H (Negative) U Epithel Cells (Auto) >30 H (0-5) /lpf Urine Bacteria (Auto) 1+ H (Negative) Diagnostic Findings Chest X-Ray 09/04/23 17:56 XR chest 1V not portable HISTORY: 72 years-old Female Sepsis acute sepsis COMPARISON: None TECHNIQUE: PA view of the chest FINDINGS: Cardiac silhouette is enlarged. Mild linear subsegmental left basilar and right midlung atelectasis versus scarring. No pneumothorax, pleural effusion or airs pace operation. Degenerative changes of the shoulders and spine. IMPRESSION: No acute process. ACT 112: Negative or not required by law. The above report was generated using voice recognition software. It may contain grammatical, syntax or spelling errors. Electronically signed by: Sebastian Nicole M.D. 09/04/2023 6:22 PM Chest CTA 09/04/23 20:30 Exam(s): CTA CHEST IV Amt: 117 ml optiray 320 EXAM: CT Angiography Chest With Intravenous Contrast CLINICAL HISTORY: Reason for exam: sob, r/o PE. TECHNIQUE: Axial computed tomographic angiography images of the chest with intravenous contrast. CTDI is 37.9 mGy and DLP is 824.87 mGy-cm. Automated exposure control was utilized for the study. A dose lowering technique was utilized adhering to the principles of ALARA. MIP reconstructed images were created and reviewed. COMPARISON: No relevant prior studies available. FINDINGS: Pulmonary arteries: Unremarkable. No acute pulmonary embolism. Aorta: Atherosclerotic changes of the aorta. No thoracic aortic aneurysm. Lungs: Atelectasis at the lung bases. No mass. Pleural space: Small LEFT pleural effusion. No pneumothorax. Heart: Small pericardial effusion. Cardiomegaly. No evidence of RV dysfunction. Bones/joints: Degenerative changes of the spine. No acute fracture. No dislocation. Soft tissues: Unremarkable. Lymph nodes: Unremarkable. No enlarged lymph nodes. IMPRESSION: 1. No acute pulmonary embolism. 2. Small pericardial effusion. 3. Small LEFT pleural effusion. Electronically signed by: Coy Tavarez MD 09/04/23 22:08 PM Venous Doppler Study 09/04/23 23:05 Exam(s): US VENOUS RIGHT LOWER EXTREMITY EXAM: US Duplex Right Lower Extremity Veins CLINICAL HISTORY: Reason for exam: RLE edema. TECHNIQUE: Real-time duplex ultrasound scan of the right lower extremity veins integrating B-mode two-dimensional vascular structure, Doppler spectral analysis, color flow Doppler imaging and compression. COMPARISON: No relevant prior studies available. FINDINGS: Deep veins: Unremarkable. No DVT in the visualized common femoral, femoral, proximal deep femoral or popliteal veins. The veins demonstrate normal color flow, are normally compressible, with normal phasic flow and/or augmentation response. Soft tissues: No acute findings. No popliteal cyst. IMPRESSION: No evidence of the right lower extremity deep venous thrombosis. Electronically signed by: Erick Hwang M.D. 09/05/23 01:53 AM Ankle X-Ray 09/05/23 00:42 XR ankle RT min 3V routine HISTORY: 72 years-old Female cellulitis, r/o osteo acute pain and swelling of the right ankle and lower leg COMPARISON: Tibia and fibular radiographs of same day TECHNIQUE: 3 views of the right ankle FINDINGS: Diffuse soft tissue swelling. There is mild osteoarthritis of the ankle with moderate osteoarthritis of the midfoot. No acute fracture, dislocation or osseous erosion. Arterial calcifications. IMPRESSION: 1. No acute osseous abnormality. 2. Diffuse soft tissue swelling. ACT 112: Negative or not required by law. The above report was generated using voice recognition software. It may contain grammatical, syntax or spelling errors. Electronically signed by: Sebastian Nicole M.D. 09/05/2023 7:47 AM Tibia/Fibula X-Ray 09/05/23 00:42 XR tibia fibula RT 2V CLINICAL HISTORY: cellulitis, r/o osteo COMPARISON: None FINDINGS: No fracture within the right tibia or fibula is identified. No bony erosions are present. Moderate to severe tricompartmental osteoarthritis within the right knee is present. This is most pronounced within the medial and patellofemoral compartments. Diffuse right lower leg soft tissue swelling is present. There is no radiographic evidence for soft tissue gas. IMPRESSION: 1. No evidence for osteomyelitis within the right tibia or fibula. 2. Diffuse right lower leg soft tissue swelling. ACT 112: Negative or not required by law. Electronically signed by: Agustin Del Rio M.D. 09/05/2023 6:49 AM PG Care Time/CCT Total # of Minutes Spent Total Time Spent with Patient: Total time spent is greater than 50% in coordination of care (as documented) at patient's floor/unit and/or counseling patient: Coding Level of Care Code 35529 SUB INP/OBS CARE 2/35MIN Diagnoses Cellulitis of right lower leg L03.115 COPD with acute exacerbation J44.1 Elevated troponin R79.89 Elevated brain natriuretic peptide (BNP) level R79.89 Renal insufficiency N28.9 Depression F32.A Gout M10.9
[2023-09-05] MEDS: DAPTOmycin 450 MG in SYRINGE 0 ML IV SCH (20:02)
[2023-09-06] MEDS: ACETAMINOPHEN 325 MG TAB PO PRN ×2 (06:01→15:11)
[2023-09-06 07:22] LABS: BUN Creatinine Ratio 20.4 (10-20); Calcium 10.1 mg/dl (8.6-10.3); Creatinine Clr Calc Pharmacy 32.8 ml/min; Est GFR (Non-African American) 27.6 ml/min; Magnesium 2.3 mg/dl (1.7-2.4); Potassium 4.4 mmol/L (3.5-5.1)
[2023-09-06 07:37] LABS: Hematocrit (blood only) 41.7 % (37.0-47.0); Hemoglobin 12.9 g/dl (12.0-16.0); Mean Corpuscular Hemoglobin 28.4 pg (25.0-34.0); Mean Corpuscular Hgb Conc 30.9 g/dL (32.0-36.0); Mean Corpuscular Volume 91.9 fL (80.0-100.0); Mean Platelet Volume 10.6 fL (9.4-12.4); Platelet Count 347 K/uL (130-400); RDW Coefficient of Variation 14.6 % (11.5-14.5); RDW Standard Deviation 49.4 fL (36.4-46.3); Red Blood Count 4.54 M/uL (4.20-5.40); White Blood Count 17.58 K/ul (4.8-10.8)
[2023-09-06] MEDS: allopurinoL 100 MG TAB PO SCH (08:26)
[2023-09-06] MEDS: DULoxetine HCL 30 MG CAP PO SCH (08:26)
[2023-09-06] MEDS: AZITHROMYCIN 250 MG TAB PO SCH (08:26)
[2023-09-06] MEDS: LOSARTAN POTASSIUM 50 MG TAB PO SCH (08:26)
[2023-09-06] MEDS: ENOXAPARIN INJ 40 MG/0.4 ML SYR SQ SCH (08:27)
[2023-09-06] MEDS: predniSONE 20 MG TAB PO SCH (08:27)
[2023-09-06] MEDS: METOPROLOL TARTRATE 50 MG TAB PO SCH ×2 (08:34→20:39)
[2023-09-06] MEDS ORDERED: AZITHROMYCIN 250 MG TAB PO SCH (09:00)
--- NOTE | 2023-09-06 17:07 | Hospitalist Progress Note ---
Date of Service September 06, 2023 Assessment & Plan (1) Cellulitis of right lower leg: (2) COPD with acute exacerbation: (3) Elevated troponin: (4) Elevated brain natriuretic peptide (BNP) level: (5) Renal insufficiency: (6) Depression: (7) Gout: Plan Right LE cellulitis - began in July with small blister - per pt, was dx with DM many years ago and was on metformin for 10 yrs; she was then told she was not diabetic and the metformin is what caused her kidney decline - xrays negative for osteomyelitis - RLE doppler ruled out DVT - s/p zosyn and dapto in the ER; now on daptomycin. Switch her to Kefzol IV. Blood cultures and wound culture negative till date Improving with antibiotics Improved swelling, redness, pain COPD exacerbation - acute on chronic, no PFTs available - per pt, hx of recent PNA in Jul 2023 treated with doxycycline - no prior hospitalizations for COPD per pt - CXR WNL; chest CTA showed small left pleural effusion, no signs of PNA - RVP neg Nurse was able to titrate her down to 1.5 L O2, now saturating 92% - continue with duoneb PRN, prednisone daily, and azithromycin x5 days White count went up to 17,000, most likely steroid-induced - encouraged outpatient discussion with PCP to determine if pt needs PFTs and/or addition of controller inhaler LISA on CKD Patient says that she sees a flat drier outpatient, Dr. Tavarez at [place] Creatinine in February 2023 was 1.48 Creatinine on admission was 1.29 today bumped up to 1.81 Avoid nephrotoxic medications Monitor BMP closely Discontinue farxiga Asked for outpatient labs and office visit notes Elevated trop - stable at 22 after 3 draws - suspect demand ischemia in the setting of COPD exacerbation HTN - continue home losartan 50 mg, metoprolol 50 mg BID Hypomagnesemia - 1.2 upon admission - repleted Hx of gout - continue allopurinol 100 mg daily Depression - continue home duloxetine 30 mg daily Diet: heart healthy VTE ppx: lovenox Code: full Admission and Anticipated Discharge Date Admission Date: September 05, 2023 Subjective The patient states that she feels better today. Her right leg is improving in pain, redness, swelling Review of Systems Review of Systems: All systems reviewed & are unremarkable except as noted in Subjective Physical Exam Physical Exam: General: Awake, conversant Heart: S1, S2/regular rate and rhythm, no murmur rubs or gallops Lungs: Diminished breath sounds bilaterally. No wheezing heard.. Normal effort Abdomen: Soft/nontender/nondistended. No hepatosplenomegaly Extremities: No clubbing/cyanosis. No edema on the left leg. Right leg is red and inflamed looking. However fading is noted towards the margin. Behavior: Appropriate, cooperative Results & Data Results & Data Vital Signs (Past 12 Hours) Vital Signs Temp Pulse Resp BP BP Pulse Ox O2 Del Method 09/06/23 15:14 36.6 C 114 H 20 157/84 H 92 Nasal Cannula 09/06/23 08:31 98 H 20 148/92 H 09/06/23 07:30 Nasal Cannula 09/06/23 07:14 36.3 C L 89 16 110/80 98 Nasal Cannula O2 Flow Rate 09/06/23 15:14 1.5 09/06/23 08:31 09/06/23 07:30 4 09/06/23 07:14 4 Laboratory Results Abnormal lab results 09/06/23 Range/Units 06:18 WBC 17.58 H (4.8-10.8) K/ul MCHC 30.9 L (32.0-36.0) g/dL RDW Std Deviation 49.4 H (36.4-46.3) fL RDW Coeff of Evan 14.6 H (11.5-14.5) % BUN 37 H (6-23) mg/dl Creatinine 1.81 H D (0.6-1.2) mg/dl BUN/Creatinine Ratio 20.4 H (10-20) Glucose 125 H (70-99(Fasting)) mg/dl PG Care Time/CCT Total # of Minutes Spent Total Time Spent with Patient: Total time spent is greater than 50% in coordination of care (as documented) at patient's floor/unit and/or counseling patient: Coding Level of Care Code 53800 SUB INP/OBS CARE 2/35MIN Diagnoses Cellulitis of right lower leg L03.115 COPD with acute exacerbation J44.1 Elevated troponin R79.89 Elevated brain natriuretic peptide (BNP) level R79.89 Renal insufficiency N28.9 Depression F32.A Gout M10.9
[2023-09-06] MEDS ORDERED: ceFAZolin 500 MG in SYRINGE 0 ML IV SCH (17:15)
[2023-09-06] MEDS: ceFAZolin 2000MG 2,000 MG/15 ML SYR IV SCH (18:41)
[2023-09-07] MEDS: ACETAMINOPHEN 325 MG TAB PO PRN ×3 (01:06→16:47)
[2023-09-07] MEDS: ceFAZolin 2000MG 2,000 MG/15 ML SYR IV SCH ×2 (05:19→17:32)
--- NOTE | 2023-09-07 05:19 | Billing Data ---
Date of Service September 07, 2023 Coding Level of Care Code 83745 INT INP/OBS CARE
[2023-09-07 07:40] LABS: Hematocrit (blood only) 43.5 % (37.0-47.0); Hemoglobin 13.1 g/dl (12.0-16.0); Mean Corpuscular Hemoglobin 28.1 pg (25.0-34.0); Mean Corpuscular Hgb Conc 30.1 g/dL (32.0-36.0); Mean Corpuscular Volume 93.3 fL (80.0-100.0); Mean Platelet Volume 10.2 fL (9.4-12.4); Platelet Count 325 K/uL (130-400); RDW Coefficient of Variation 14.6 % (11.5-14.5); RDW Standard Deviation 50.5 fL (36.4-46.3); Red Blood Count 4.66 M/uL (4.20-5.40); White Blood Count 14.89 K/ul (4.8-10.8)
[2023-09-07] MEDS: METOPROLOL TARTRATE 50 MG TAB PO SCH ×2 (08:05→20:55)
[2023-09-07 08:06] LABS: BUN Creatinine Ratio 26.9 (10-20); Calcium 10.1 mg/dl (8.6-10.3); Creatinine Clr Calc Pharmacy 35.5 ml/min; Est GFR (African American) 35.3 ml/min; Est GFR (Non-African American) 30.5 ml/min; Magnesium 2.1 mg/dl (1.7-2.4); Potassium 4.4 mmol/L (3.5-5.1)
[2023-09-07] MEDS: allopurinoL 100 MG TAB PO SCH (08:06)
[2023-09-07] MEDS: DULoxetine HCL 30 MG CAP PO SCH (08:06)
[2023-09-07] MEDS: ENOXAPARIN INJ 40 MG/0.4 ML SYR SQ SCH (08:07)
[2023-09-07] MEDS: AZITHROMYCIN 250 MG TAB PO SCH (08:07)
[2023-09-07] MEDS ORDERED: predniSONE 20 MG TAB PO SCH (09:00)
[2023-09-07] MEDS ORDERED: FUROSEMIDE 40 MG/4 ML VIAL IV ONE (14:27)
--- NOTE | 2023-09-07 16:13 | XCELERA ---
[id number] \\[id number]
--- NOTE | 2023-09-07 17:36 | Hospitalist Progress Note ---
Date of Service September 07, 2023 Assessment & Plan (1) Cellulitis of right lower leg: (2) COPD with acute exacerbation: (3) Elevated troponin: (4) Elevated brain natriuretic peptide (BNP) level: (5) Renal insufficiency: (6) Depression: (7) Gout: Plan Right LE cellulitis - began in July with small blister - per pt, was dx with DM many years ago and was on metformin for 10 yrs; she was then told she was not diabetic and the metformin is what caused her kidney decline - xrays negative for osteomyelitis - RLE doppler ruled out DVT - s/p zosyn and dapto in the ER; now on daptomycin. Switch her to Kefzol IV. Blood cultures and wound culture negative till date Improving with antibiotics Improved swelling, redness, pain Acute on chronic diastolic congestive heart failure Patient has dyspnea on exertion She is hypoxic requiring O2 She appears edematous Will order 1 dose of 40 mg of IV Lasix x 1 now She takes 20 mg of Lasix on an as-needed basis at home which has been held since admission Monitor urine output and renal function Monitor for clinical improvement COPD exacerbation - acute on chronic, no PFTs available - per pt, hx of recent PNA in Jul 2023 treated with doxycycline - no prior hospitalizations for COPD per pt - CXR WNL; chest CTA showed small left pleural effusion, no signs of PNA - RVP neg Nurse was able to titrate her down to 1.5 L O2, now saturating 92% - continue with duoneb PRN, prednisone daily, and azithromycin x5 days White count up, most likely steroid-induced. Reduce steroids - encouraged outpatient discussion with PCP to determine if pt needs PFTs and/or addition of controller inhaler LISA on CKD Patient says that she sees a children's service supervisor outpatient, Dr. Tavarez at [place] Creatinine in February 2023 was 1.48 Creatinine on admission was 1.29, bumped up to 1.81, today 1.7 Avoid nephrotoxic medications Monitor BMP closely especially while diuresing Discontinue farxiga Asked for outpatient labs and office visit notes Elevated trop - stable at 22 after 3 draws - suspect demand ischemia in the setting of COPD exacerbation HTN -Hold losartan, continue metoprolol 50 mg BID Hypomagnesemia - 1.2 upon admission - repleted Hx of gout - continue allopurinol 100 mg daily Depression - continue home duloxetine 30 mg daily Diet: heart healthy VTE ppx: lovenox Code: full Admission and Anticipated Discharge Date Admission Date: September 05, 2023 Subjective Patient is noted to be short of breath on minimal exertion. She says that she just got back from the bathroom and has had increased work of breathing. Per son in the room, this has been her usual norm lately where she gets short of breath with minimal exertion. Review of Systems Review of Systems: All systems reviewed & are unremarkable except as noted in Subjective Physical Exam Physical Exam: General: Awake, conversant Heart: S1, S2/regular rate and rhythm, no murmur rubs or gallops Lungs: Diminished breath sounds bilaterally. No wheezing heard.. Increased effort Abdomen: Soft/nontender/nondistended. No hepatosplenomegaly Extremities: No clubbing/cyanosis. No edema on the left leg. Right leg is red and inflamed looking. However fading is noted towards the margin. Behavior: Appropriate, cooperative Results & Data Results & Data Vital Signs (Past 12 Hours) Vital Signs Temp Pulse Resp BP Pulse Ox O2 Del Method O2 Flow Rate 09/07/23 14:06 36.6 C 103 H 16 151/89 H 95 Nasal Cannula 1.5 09/07/23 07:35 Nasal Cannula 2 09/07/23 07:19 36.9 C 103 H 16 152/98 H 94 Nasal Cannula 1.5 PG Care Time/CCT Total # of Minutes Spent Total Time Spent with Patient: Total time spent is greater than 50% in coordination of care (as documented) at patient's floor/unit and/or counseling patient: Coding Level of Care Code 26589 SUB INP/OBS CARE 2/35MIN Diagnoses Cellulitis of right lower leg L03.115 COPD with acute exacerbation J44.1 Elevated troponin R79.89 Elevated brain natriuretic peptide (BNP) level R79.89 Renal insufficiency N28.9 Depression F32.A Gout M10.9
[2023-09-08] MEDS: ACETAMINOPHEN 325 MG TAB PO PRN ×4 (02:05→21:23)
[2023-09-08] MEDS: ceFAZolin 2000MG 2,000 MG/15 ML SYR IV SCH ×2 (05:55→17:04)
[2023-09-08 06:28] LABS: Hematocrit (blood only) 43.6 % (37.0-47.0); Hemoglobin 13.5 g/dl (12.0-16.0); Mean Corpuscular Hemoglobin 28.5 pg (25.0-34.0); Mean Corpuscular Volume 92.2 fL (80.0-100.0); Mean Platelet Volume 10.4 fL (9.4-12.4); Platelet Count 298 K/uL (130-400); RDW Coefficient of Variation 14.5 % (11.5-14.5); Red Blood Count 4.73 M/uL (4.20-5.40)
[2023-09-08 07:07] LABS: BUN Creatinine Ratio 31.1 (10-20); Calcium 10.2 mg/dl (8.6-10.3); Creatinine Clr Calc Pharmacy 44.9 ml/min; Est GFR (African American) 46.9 ml/min; Est GFR (Non-African American) 40.5 ml/min; Potassium 4.7 mmol/L (3.5-5.1)
[2023-09-08] MEDS: DULoxetine HCL 30 MG CAP PO SCH (08:09)
[2023-09-08] MEDS: AZITHROMYCIN 250 MG TAB PO SCH (08:09)
[2023-09-08] MEDS: allopurinoL 100 MG TAB PO SCH (08:09)
[2023-09-08] MEDS: METOPROLOL TARTRATE 50 MG TAB PO SCH ×2 (08:09→21:22)
[2023-09-08] MEDS: ENOXAPARIN INJ 40 MG/0.4 ML SYR SQ SCH (08:09)
[2023-09-08] MEDS ORDERED: predniSONE 10 MG TABLET PO SCH (09:00)
[2023-09-08] MEDS ORDERED: FUROSEMIDE 40 MG/4 ML VIAL IV ONE (12:08)
--- NOTE | 2023-09-08 14:51 | Hospitalist Progress Note ---
Date of Service September 08, 2023 Assessment & Plan (1) Cellulitis of right lower leg: (2) COPD with acute exacerbation: (3) Elevated troponin: (4) Elevated brain natriuretic peptide (BNP) level: (5) Renal insufficiency: (6) Depression: (7) Gout: Plan Right LE cellulitis - began in July with small blister - per pt, was dx with DM many years ago and was on metformin for 10 yrs; she was then told she was not diabetic and the metformin is what caused her kidney decline - xrays negative for osteomyelitis - RLE doppler ruled out DVT - s/p zosyn and dapto in the ER; now on daptomycin. Switched her to Kefzol IV. Blood cultures and wound culture negative till date Improving with antibiotics Improved swelling, redness, pain Acute on chronic diastolic congestive heart failure Patient has dyspnea on exertion, improved with IV Lasix She is hypoxic requiring O2. Asked the nurse to wean down O2 She appears less edematous today Will order another dose of 40 mg of IV Lasix x 1 now She takes 20 mg of Lasix on an as-needed basis at home which has been held since admission Monitor urine output and renal function Monitor for clinical improvement Echocardiogram showed no depressed EF but showed diastolic dysfunction COPD exacerbation -Most likely patient did not have a COPD exacerbation but rather had a CHF exacerbation - per pt, hx of recent PNA in Jul 2023 treated with doxycycline - no prior hospitalizations for COPD per pt - CXR WNL; chest CTA showed small left pleural effusion, no signs of PNA - RVP neg Nurse was able to titrate her down to 1.5 L O2, now saturating 92% - continue with duoneb PRN, discontinue prednisone and azithromycin Patient never smoked. Unlikely that she has COPD White count up, most likely steroid-induced. Discontinue prednisone - encouraged outpatient discussion with PCP to determine if pt needs PFTs and/or addition of controller inhaler LISA on CKD Patient says that she sees a central office associate outpatient, Dr. Tavarez at [place] Creatinine in February 2023 was 1.48 Creatinine on admission was 1.29, bumped up to 1.81, today down to 1.3 after Lasix Avoid nephrotoxic medications Monitor BMP closely especially while diuresing Discontinue farxiga Elevated trop - stable at 22 after 3 draws - suspect demand ischemia in the setting of COPD exacerbation HTN -Hold losartan, continue metoprolol 50 mg BID Hypomagnesemia - 1.2 upon admission - repleted Hx of gout - continue allopurinol 100 mg daily Depression - continue home duloxetine 30 mg daily Diet: heart healthy VTE ppx: lovenox Code: full Admission and Anticipated Discharge Date Admission Date: September 05, 2023 Subjective Patient says that she had "a lot of urine" output. She says that she feels less short of breath today with exertion. Review of Systems Review of Systems: All systems reviewed & are unremarkable except as noted in Subjective Physical Exam Physical Exam: General: Awake, conversant Heart: S1, S2/regular rate and rhythm, no murmur rubs or gallops Lungs: Diminished breath sounds bilaterally. No wheezing heard.. Normal effort Abdomen: Soft/nontender/nondistended. No hepatosplenomegaly Extremities: No clubbing/cyanosis. No edema on the left leg. Right leg cellulitis improved Behavior: Appropriate, cooperative Results & Data Results & Data Vital Signs (Past 12 Hours) Vital Signs Temp Pulse Resp BP Pulse Ox O2 Del Method O2 Flow Rate 09/08/23 11:18 93 Nasal Cannula 1 09/08/23 08:30 Nasal Cannula 1.5 09/08/23 07:27 36.4 C L 104 H 20 144/90 H 96 Nasal Cannula 1.5 Laboratory Results Abnormal lab results 09/08/23 Range/Units 05:33 WBC 12.10 H (4.8-10.8) K/ul MCHC 31.0 L (32.0-36.0) g/dL RDW Std Deviation 49.0 H (36.4-46.3) fL Carbon Dioxide 36 H (21-32) mmol/L BUN 41 H (6-23) mg/dl Creatinine 1.32 H D (0.6-1.2) mg/dl BUN/Creatinine Ratio 31.1 H (10-20) PG Care Time/CCT Total # of Minutes Spent Total Time Spent with Patient: Total time spent is greater than 50% in coordination of care (as documented) at patient's floor/unit and/or counseling patient: Coding Level of Care Code 90832 SUB INP/OBS CARE 2/35MIN Diagnoses Cellulitis of right lower leg L03.115 COPD with acute exacerbation J44.1 Elevated troponin R79.89 Elevated brain natriuretic peptide (BNP) level R79.89 Renal insufficiency N28.9 Depression F32.A Gout M10.9
[2023-09-09] MEDS: ACETAMINOPHEN 325 MG TAB PO PRN ×2 (05:16→14:48)
[2023-09-09] MEDS: ceFAZolin 2000MG 2,000 MG/15 ML SYR IV SCH ×2 (05:17→17:56)
[2023-09-09 07:22] LABS: BUN Creatinine Ratio 32.8 (10-20); Calcium 10.1 mg/dl (8.6-10.3); Creatinine Clr Calc Pharmacy 48.6 ml/min; Est GFR (African American) 51.6 ml/min; Est GFR (Non-African American) 44.5 ml/min; Potassium 4.4 mmol/L (3.5-5.1)
[2023-09-09] MEDS: allopurinoL 100 MG TAB PO SCH (08:11)
[2023-09-09] MEDS: DULoxetine HCL 30 MG CAP PO SCH (08:12)
[2023-09-09] MEDS: ENOXAPARIN INJ 40 MG/0.4 ML SYR SQ SCH (08:12)
[2023-09-09] MEDS: METOPROLOL TARTRATE 50 MG TAB PO SCH ×2 (08:12→20:52)
[2023-09-09] MEDS: FUROSEMIDE 40 MG TAB PO SCH (10:49)
[2023-09-09] MEDS ORDERED: FUROSEMIDE 40 MG TAB PO ONE (14:24)
--- NOTE | 2023-09-09 14:28 | Hospitalist Progress Note ---
Date of Service September 09, 2023 Assessment & Plan (1) Cellulitis of right lower leg: (2) COPD with acute exacerbation: (3) Elevated troponin: (4) Elevated brain natriuretic peptide (BNP) level: (5) Renal insufficiency: (6) Depression: (7) Gout: Plan Right LE cellulitis - began in July with small blister - per pt, was dx with DM many years ago and was on metformin for 10 yrs; she was then told she was not diabetic and the metformin is what caused her kidney decline - xrays negative for osteomyelitis - RLE doppler ruled out DVT - s/p zosyn and dapto in the ER; now on daptomycin. Switched her to Kefzol IV. Can switch to p.o. at the time of discharge Blood cultures and wound culture negative till date Improving with antibiotics Improved swelling, redness, pain Acute on chronic diastolic congestive heart failure Patient has dyspnea on exertion, improved with IV Lasix She is hypoxic requiring O2. Asked the nurse to wean down O2 She appears even less edematous today I will start her on 40 mg of p.o. Lasix today She takes 20 mg of Lasix on an as-needed basis at home which has been held since admission Monitor urine output and renal function Monitor for clinical improvement Echocardiogram showed no depressed EF but showed diastolic dysfunction Likely discharge tomorrow COPD exacerbation -Most likely patient did not have a COPD exacerbation but rather had a CHF exacerbation - per pt, hx of recent PNA in Jul 2023 treated with doxycycline - no prior hospitalizations for COPD per pt - CXR WNL; chest CTA showed small left pleural effusion, no signs of PNA - RVP neg Nurse was able to titrate her down to 1.5 L O2, now saturating 92% - continue with duoneb PRN, discontinue prednisone and azithromycin Patient never smoked. Unlikely that she has COPD White count up, most likely steroid-induced. Discontinue prednisone - encouraged outpatient discussion with PCP to determine if pt needs PFTs and/or addition of controller inhaler LISA on CKD Patient says that she sees a sap manager outpatient, Dr. Tavarez at [place] Creatinine in February 2023 was 1.48 Creatinine on admission was 1.29, bumped up to 1.81, today down to 1.2 after Lasix Avoid nephrotoxic medications Monitor BMP closely especially while diuresing Discontinued farxiga Elevated trop - stable at 22 after 3 draws - suspect demand ischemia in the setting of COPD exacerbation HTN -Hold losartan, continue metoprolol 50 mg BID Blood pressure acceptable Continue Lasix Hypomagnesemia - 1.2 upon admission - repleted Hx of gout - continue allopurinol 100 mg daily Depression - continue home duloxetine 30 mg daily Diet: heart healthy VTE ppx: lovenox Code: full Likely discharge tomorrow 09/10 on p.o. Lasix and p.o. antibiotics Admission and Anticipated Discharge Date Admission Date: September 05, 2023 Subjective Patient feels much better overall. She says that she is not getting as winded when she goes to the bathroom. She is still needing 1 L of oxygen per nasal cannula. Review of Systems Review of Systems: All systems reviewed & are unremarkable except as noted in Subjective Physical Exam Physical Exam: General: Awake, conversant Heart: S1, S2/regular rate and rhythm, no murmur rubs or gallops Lungs: Diminished breath sounds bilaterally. No wheezing heard.. Normal effort Abdomen: Soft/nontender/nondistended. No hepatosplenomegaly Extremities: No clubbing/cyanosis. No edema on the left leg. Right leg cellulitis improved Behavior: Appropriate, cooperative Results & Data Results & Data Vital Signs (Past 12 Hours) Vital Signs Temp Pulse Resp BP Pulse Ox O2 Del Method O2 Flow Rate 09/09/23 07:25 Nasal Cannula 1 09/09/23 07:18 36.6 C 107 H 20 152/93 H 96 Nasal Cannula 1.5 Laboratory Results Abnormal lab results 09/09/23 Range/Units 06:23 Carbon Dioxide 36 H (21-32) mmol/L BUN 40 H (6-23) mg/dl Creatinine 1.22 H (0.6-1.2) mg/dl BUN/Creatinine Ratio 32.8 H (10-20) PG Care Time/CCT Total # of Minutes Spent Total Time Spent with Patient: Total time spent is greater than 50% in coordination of care (as documented) at patient's floor/unit and/or counseling patient: Coding Level of Care Code 34742 SUB INP/OBS CARE 2/35MIN Diagnoses Cellulitis of right lower leg L03.115 COPD with acute exacerbation J44.1 Elevated troponin R79.89 Elevated brain natriuretic peptide (BNP) level R79.89 Renal insufficiency N28.9 Depression F32.A Gout M10.9
[2023-09-10] MEDS: ACETAMINOPHEN 325 MG TAB PO PRN ×4 (00:30→20:15)
[2023-09-10] MEDS: ceFAZolin 2000MG 2,000 MG/15 ML SYR IV SCH ×2 (05:18→17:04)
[2023-09-10 08:01] LABS: BUN Creatinine Ratio 27.3 (10-20); Calcium 10.3 mg/dl (8.6-10.3); Creatinine Clr Calc Pharmacy 46.3 ml/min; Est GFR (African American) 48.7 ml/min; Potassium 4.1 mmol/L (3.5-5.1)
--- NOTE | 2023-09-10 08:04 | Hospitalist Progress Note ---
Date of Service September 10, 2023 Assessment & Plan (1) Cellulitis of right lower leg: Plan: Admitted w/ cellulitis RLE, reportedly started from blister in july w/ progression/worsening (reporting improvement since abx therapy since admission, cxs NGTD). Lyme checked, negative On admission, xray negative for evidence for acute osteomyelitis, Venous doppler NEGATIVE for DVT Patient reporting improvement in her cellulitis 09/10, does have some warmth/redness however WBC slightly elevated and will need to monitor for escalation Dapto/Zosyn IV given on admission and was de-escalated to Ancef at present time due to negative cultures but will need to monitor to see if needing escalation in antibiotics -- Blood cultures, leg cx without growth from admission Patient had her prn diuretics held on admission due to LISA w/ Cr to 1.8 however appears closer to baseline and I suspect combination of volume overload/diastolic CHF contributing Restarted home lasix and was given 40mg IV x 1 on 09/07 and additional 40mg IV on 09/08 and placed on 40mg PO daily for 09/09 and continued daily Eval patient AM 09/10 w/ increased LE edema/O2 use (however decreased to 1L, not on O2 at baseline) and asked nursing to obtain weights as below concerning for CHF exacerbation and likely cause of poor healing Weight 113.8kg--> 123.7kg, up 9.9kg (21lbs) Already given 40mg PO lasix this morning, increased to 40mg IV BID as BNP checked and remaining elevated without significant IVF on admission and has been off her farxiga ( bringing in today) and her losartan which is going to be resumed for today and will consult CHF clinic provider. ECHO previously w/ evidence for diastolic heart failure and improvement in exam since diuretics and she notes she had not been taking them at home as she was supposed to. Asked RN to continue to monitor daily standing scale weights, measure I&Os and will monitor labs this afternoon to ensure stable on increased diuretics and monitor output to see if any escalations required. Likely benefit from switching from metoprolol tartrate to succinate but will monitor If able to wean to room air, suspect benefit from overnight pulse ox as I do strongly suspect she has underlying untreated DIANA. No palpitations reported/concerns for afib at present but will also check TSH w/ AM labs. (2) CHF exacerbation: Plan: SUSPECT ACUTE exacerbation HFpEF in patient without formal diagnosis but on "20mg prn lasix at home, however does report doesn't taking as supposed to at home) She notes she was at [facility] in July and diagnosed w/ PNA and given doxy/steroids, felt possible COPD exacerbation. Not on O2 at baseline but does endorse 3 pillow orthopnea at baseline, SOB w/ exertion BNP elevated on admission, diuretics were held up front w/ Cr 1.8 but suspect from infection/volume overload CT chest from admit noting small pericardial effusion, L effusion. Had not been getting diuretics up front but was resumed as above and increased as outlined below Was given lasix to help w/ swelling/cellulitis w/ improvement and was increased to 40mg PO daily however did not see I&Os documented on patient and asked nursing to obtain weight for comparison to admission. Weight 113.8kg--> 123.7kg , no accurate I&Os, now ordered and discussed with nursing CXR ordered for comparison--> evidence of cardiomegaly w/ pulmonary vascular congestion w/ b/l pleural effusions, continues on supplemental oxygen INCREASE LASIX to 40mg IV BID. Can consider diamox if needed for CO2 retention if further elevated on AM labs. check vbg Monitor I&O, weights as above. continue AHA diet/monitor for need for fluid restriction On nh at home for CHF/?diabetes, had been held on admission (reports bringing this in for her today, was unable to day prior due to weather) --> RESUMED 09/10 Also on losartan which appears to have been held on admission, resumed to assist w/ acute CHF, diastolic w/ preserved EF Notable her ALP was also 105 on admission, suspect from hepatic congestion and no abd pain on exam Continue metoprolol 50mg BID but consider transition to succinate for CHF Consider overnight pulse ox study if able to titrate to room air as suspect likely benefit/component of underlying sleep apnea as well CHF clinic provider consulted and suspect benefit from f/u outpatient (3) COPD with acute exacerbation: Plan: No baseline PFTs, non smoker but did report her parents 3pk day smokers in the house growing up. Will need outpt f/u Reports using albuterol nebulizer 1-2x/day, HFA at night. Denied reflux but ?underlying reflux and will monitor -- had some while on steroids but reports resolved since off these Was given steroids, decreased prednisone and stopped. Suspect contributed to weight gain. Did have prednisone course w/ doxy in [place] [facility] for suspected PNA but ?if was having CHF exacerbation. No sputum production reported Was on 2L NC on admission to maintain sats, up to 4L on 09/05 and titrated to 1.5-2L since diuretics and 1L since increase. Suspect able to titrate off w/ continued diuretics and will need outpt f/u PCP Got azithromycin x 5 days on admit Titrate O2 as able (4) Elevated troponin: Plan: stable at 22 after 3 draws, no CP reported. Suspect demand ischemia in setting of cellulitis/infection (also cannot r/o from CHF exacerbation as BNP was elevated on admission) (5) Elevated brain natriuretic peptide (BNP) level: Plan: BNP 286 on admission. Diuretics not given up front but started/increased as outlined BNP to 209 on repeat despite diuretics and increasing to IV BID for today as CXR w/ continued congestion and improvement/stable renal function w/ such and can monitor ECHO w/ preserved EF (6) Renal insufficiency: Plan: CKD 3 baseline Patient says that she sees a feller hand outpatient, Dr. Tavarez at [facility] on chronic on admit, Cr bumped to 1.8 but improvede w/ diuretics Presently, BUN/Cr 35/1.28 Appears volume overloaded on exam and lasix increased as above, losartan resumed to assist w/ CHF renal dose meds/avoid nephrotoxins as able (7) Depression: Plan: mood stable at time of encounter, continues on duloxetine 30mg daily (8) Gout: Plan: continue allopurinol (9) Hypomagnesemia: Plan: checked w/ AM labs given "COPD" and prior lows 1.6 --> 2gm IV ordered and will monitor in AM. Consider PO supplementation if continued lows Plan VTE ppx: lovenox utilized while inpatient but can consider heparin if needed given renal insufficiency/CKD Monitor response to diuretics, will consult PT/OT to ensure stable for return home without need for home health/therapy Possible dc in next 24 hours but I did discuss w/ patient may require additional stay for diuresis but will monitor Admission and Anticipated Discharge Date Admission Date: September 05, 2023 Subjective Eval this mroning, feeling alright. No fever/chills. Discussed concerns about CHF/additional diuresis needed. Not on O2 at baseline. Typically sleeps elevated/3 pillows. Does endorse orthopnea. Prior rx for Doxy/prednisone at [facility] in July for supposed pneumonia. Nots using albuterol nebulizer 1-2 times at home and albuterol HFA at night. She does endorse she doesn't take her water pill as she typically should. Discussed weights up, and symptoms concerning for CHF. CXR ordered but she was eating breakfast and they haven't been back around. Lungs diminished and LE pitting edema and additional diuretics this afternoon. Also resumed losartan and her bringing in her [facility]. Weights this morning 123.7kg from 113.kg on admission. BNP elevated. Also discussed metoprolol - no palpitations. Likely benefit from succinate. Physical Exam 2 Physical Exam: General: chronically ill appearing female sitting up in recliner, NAD but fatigued appearing however reports LE cellulitis/breathing improving HEENT; head atraumatic, normocephalic, trachea midline Resp: diminished in the bases with associated crackles, faint exp wheeze/no rales, on 1L NC CV: RRR, no significant m/r/g, +b/l LE pitting edema GI: +BS, soft/obese, nontender, +HJR ; no murrell MSK/neuro: generalized weakness but nonfocal, answering questions appropriately, no slurred speech/facial droop Psych: AOx3, cooperative with exam SKin: b/l LE edema, pitting, chronic venous stasis changes RLE cellulitis reportedly improved, decreased edema/redness, decreased tenderness Results & Data Results & Data Vital Signs (Past 12 Hours) Vital Signs Temp Pulse Resp BP BP Pulse Ox O2 Del Method 09/10/23 07:22 36.7 C 79 18 141/87 H 94 Nasal Cannula 09/10/23 00:58 95 H 93 Nasal Cannula 09/09/23 21:43 110 H 09/09/23 21:40 36.2 C L 16 147/88 H 93 Nasal Cannula O2 Flow Rate 09/10/23 07:22 1 09/10/23 00:58 09/09/23 21:43 09/09/23 21:40 1.0 Laboratory Results 09/10/23 08:25 09/10/23 06:25 Diagnostic Findings Chest X-Ray 09/10/23 08:07 XR chest 1V portable HISTORY: 72 years-old Female f/u CHF/ pulm congestion acute shortness of breath COMPARISON: 09/04/2023 TECHNIQUE: AP view of the chest FINDINGS: Cardiac silhouette is enlarged. Mild linear right midlung atelectasis versus scarring redemonstrated. Pulmonary vascular congestion with trace pleural effusions. No pneumothorax or lobar airspace consolidation. The bones appear grossly intact. Right shoulder rotator cuff calcific tendinosis. IMPRESSION: Cardiomegaly with unchanged pulmonary vascular congestion and trace pleural effusions. ACT 112: Negative or not required by law. The above report was generated using voice recognition software. It may contain grammatical, syntax or spelling errors. Electronically signed by: Sebastian Nicole M.D. 09/10/2023 12:10 PM PG Care Time/CCT Total # of Minutes Spent Total Time Spent with Patient: Total time spent is greater than 50% in coordination of care (as documented) at patient's floor/unit and/or counseling patient: Coding Level of Care Code 62279 SUB INP/OBS CARE 3/50MIN Diagnoses Cellulitis of right lower leg L03.115 CHF exacerbation I50.9 COPD with acute exacerbation J44.1 Elevated troponin R79.89 Elevated brain natriuretic peptide (BNP) level R79.89 Renal insufficiency N28.9 Depression F32.A Gout M10.9 Hypomagnesemia E83.42
[2023-09-10 08:38] LABS: HCO3 VBG 49 mmol/L; Oxygen Saturation VBG < 60.0 %; PCO2 VBG 79 mmHg (38-50); PO2 VBG 22 mmHg
[2023-09-10 08:43] LABS: Basophils # (auto) 0.02 K/uL (0.00-0.20); Basophils % (auto) 0.2 %; Eosinophils % (auto) 0.8 %; Hematocrit (blood only) 48.6 % (37.0-47.0); Hemoglobin 15.1 g/dl (12.0-16.0); Immature Granulocytes # (auto) 0.07 K/uL (0.01-0.20); Immature Granulocytes % (auto) 0.5 %; Lymphocytes # (auto) 0.87 K/uL (1.20-3.40); Lymphocytes % (auto) 6.6 %; Mean Corpuscular Hemoglobin 28.7 pg (25.0-34.0); Mean Corpuscular Hgb Conc 31.1 g/dL (32.0-36.0); Mean Corpuscular Volume 92.2 fL (80.0-100.0); Mean Platelet Volume 10.3 fL (9.4-12.4); Monocytes # (auto) 1.41 K/uL (0.11-0.59); Monocytes % (auto) 10.7 %; Neutrophils # (auto) 10.73 K/uL (1.40-6.50); Neutrophils % (auto) 81.2 %; Platelet Count 298 K/uL (130-400); RDW Coefficient of Variation 14.1 % (11.5-14.5); RDW Standard Deviation 47.7 fL (36.4-46.3); Red Blood Count 5.27 M/uL (4.20-5.40)
[2023-09-10] MEDS: FUROSEMIDE 40 MG TAB PO SCH (08:57)
[2023-09-10] MEDS: allopurinoL 100 MG TAB PO SCH (08:57)
[2023-09-10] MEDS: ENOXAPARIN INJ 40 MG/0.4 ML SYR SQ SCH (08:57)
[2023-09-10] MEDS: DULoxetine HCL 30 MG CAP PO SCH (08:57)
[2023-09-10] MEDS: METOPROLOL TARTRATE 50 MG TAB PO SCH ×2 (08:58→20:15)
[2023-09-10 09:23] LABS: Lyme Ab IgG w/WB Rflx Negative (Negative)
[2023-09-10 09:24] LABS: Lyme Ab IgM w/WB Rflx Negative (Negative)
[2023-09-10] MEDS ORDERED: FUROSEMIDE 40 MG/4 ML VIAL IV ONE (09:33)
[2023-09-10] MEDS: LOSARTAN POTASSIUM 50 MG TAB PO SCH (09:57)
--- NOTE | 2023-09-10 12:11 | XRay Report ---
XR chest 1V portable HISTORY: 72 years-old Female f/u CHF/ pulm congestion acute shortness of breath COMPARISON: 09/04/2023 TECHNIQUE: AP view of the chest FINDINGS: Cardiac silhouette is enlarged. Mild linear right midlung atelectasis versus scarring redemonstrated. Pulmonary vascular congestion with trace pleural effusions. No pneumothorax or lobar airspace consol idation. The bones appear grossly intact. Right shoulder rotator cuff calcific tendinosis. IMPRESSION: Cardiomegaly with unchanged pulmonary vascular congestion and trace pleural effusions. ACT 112: Negative or not required by law. The above report was generated using voice recognition software. It may contain grammatical, syntax o r spelling errors. Electronically signed by: Sebastian Nicole M.D. 09/10/2023 12:10 PM
[2023-09-10] MEDS: MAGNESIUM SULFATE / D5W 1 GM/100 ML BAG IV SCH ×2 (12:25→14:03)
[2023-09-10 16:30] LABS: Basophils # (auto) 0.02 K/uL (0.00-0.20); Basophils % (auto) 0.1 %; Eosinophils # (auto) 0.07 K/uL (0.00-0.50); Eosinophils % (auto) 0.5 %; Hematocrit (blood only) 45.9 % (37.0-47.0); Immature Granulocytes # (auto) 0.11 K/uL (0.01-0.20); Immature Granulocytes % (auto) 0.7 %; Lymphocytes # (auto) 0.99 K/uL (1.20-3.40); Lymphocytes % (auto) 6.7 %; Mean Corpuscular Hemoglobin 28.3 pg (25.0-34.0); Mean Corpuscular Hgb Conc 30.5 g/dL (32.0-36.0); Mean Corpuscular Volume 92.7 fL (80.0-100.0); Mean Platelet Volume 10.2 fL (9.4-12.4); Monocytes # (auto) 1.65 K/uL (0.11-0.59); Monocytes % (auto) 11.2 %; Neutrophils # (auto) 11.94 K/uL (1.40-6.50); Neutrophils % (auto) 80.8 %; Platelet Count 278 K/uL (130-400); RDW Coefficient of Variation 14.2 % (11.5-14.5); RDW Standard Deviation 47.8 fL (36.4-46.3); Red Blood Count 4.95 M/uL (4.20-5.40); White Blood Count 14.78 K/ul (4.8-10.8)
[2023-09-10 16:47] LABS: BUN Creatinine Ratio 24.4 (10-20); Calcium 9.8 mg/dl (8.6-10.3); Creatinine Clr Calc Pharmacy 38.1 ml/min; Est GFR (African American) 36.1 ml/min; Est GFR (Non-African American) 31.1 ml/min; Magnesium 2.2 mg/dl (1.7-2.4); Potassium 3.9 mmol/L (3.5-5.1)
[2023-09-10] MEDS ORDERED: FUROSEMIDE 40 MG/4 ML VIAL IV SCH (17:00)
--- NOTE | 2023-09-10 17:36 | Communication Note ---
Date of Service: September 10, 2023 Do not have accurate outputs in system but per nursing patient has had copious urination since Lasix administration. Checking with clinical nursing assistant about output to get a good idea however did expect slight bump in Cr w/ diuretics and did get her am 40mg PO dose, but will ask about getting an additional weight and will change lasix to 40mg IV daily for AM . Oncoming team can make further adjustments as needed pending volume status.
[2023-09-11] MEDS: ACETAMINOPHEN 325 MG TAB PO PRN ×2 (05:04→12:56)
[2023-09-11] MEDS: ceFAZolin 2000MG 2,000 MG/15 ML SYR IV SCH ×2 (05:06→17:37)
[2023-09-11] MEDS: METOPROLOL TARTRATE 50 MG TAB PO SCH (07:56)
[2023-09-11] MEDS: ENOXAPARIN INJ 40 MG/0.4 ML SYR SQ SCH (07:56)
[2023-09-11] MEDS: DULoxetine HCL 30 MG CAP PO SCH (07:56)
[2023-09-11] MEDS: allopurinoL 100 MG TAB PO SCH (07:56)
[2023-09-11] MEDS: LOSARTAN POTASSIUM 50 MG TAB PO SCH (07:56)
[2023-09-11] MEDS: FARXIGA 5 MG PO SCH (07:57)
[2023-09-11 07:58] LABS: Hematocrit (blood only) 45.3 % (37.0-47.0); Hemoglobin 13.7 g/dl (12.0-16.0); Mean Corpuscular Hemoglobin 28.3 pg (25.0-34.0); Mean Corpuscular Hgb Conc 30.2 g/dL (32.0-36.0); Mean Corpuscular Volume 93.6 fL (80.0-100.0); Mean Platelet Volume 10.5 fL (9.4-12.4); Platelet Count 273 K/uL (130-400); RDW Coefficient of Variation 14.4 % (11.5-14.5); RDW Standard Deviation 49.1 fL (36.4-46.3); Red Blood Count 4.84 M/uL (4.20-5.40); White Blood Count 13.93 K/ul (4.8-10.8)
[2023-09-11 08:10] LABS: Estimated Average Glucose 134 mg/dl; Hemoglobin A1C 6.3 % (4.5-5.6)
[2023-09-11 08:56] LABS: Albumin Globulin Ratio 1.4 (0.9-2); Albumin Level 3.5 gm/dl (3.4-5.0); BUN Creatinine Ratio 26.7 (10-20); Bilirubin,Total 0.5 mg/dl (0.2-1.0); Calcium 9.9 mg/dl (8.6-10.3); Creatinine Clr Calc Pharmacy 38.7 ml/min; Est GFR (African American) 36.9 ml/min; Est GFR (Non-African American) 31.8 ml/min; Globulin 2.5 gm/dl (2.5-4.0); Magnesium 1.9 mg/dl (1.7-2.4); Potassium 3.9 mmol/L (3.5-5.1)
[2023-09-11] MEDS ORDERED: FUROSEMIDE 40 MG/4 ML VIAL IV SCH (09:00)
--- NOTE | 2023-09-11 17:25 | Hospitalist Progress Note ---
Date of Service September 11, 2023 Assessment & Plan (1) Cellulitis of right lower leg: Plan: Admitted w/ cellulitis RLE, secondary to open blister Leg xray negative for evidence for acute osteomyelitis, Venous doppler NEGATIVE for DVT Erythema much improved since admission, leukocytosis improving, afebrile Dapto/Zosyn IV given in [place] and was de-escalated to Ancef due to negative cultures-plan to finish out 10-day course of cephalexin on discharge Blood cultures, leg wound cx without growth (2) CHF exacerbation: Plan: Suspect acute on chronic HFpEF with elevated BNP, hypoxia, chest x-ray with trace pleural effusions and cardiomegaly, lower extremity edema CT chest with small pericardial effusion, L pleural effusion Echocardiogram here with technically limited study with LVEF 60-65%, IVC mildly dilated Was diuresed with IV Lasix and peripheral edema is the best it has been in 54 years as per patient-with rising contraction alkalosis-convert to Lasix 40 Mg p.o. once daily for tomorrow Weights and I's and O's are not accurate On Farxiga at home for CHF/?diabetes, had been held on admission --> RESUMED 09/10 Continue blood pressure control with losartan, metoprolol, Farxiga, but increasing metoprolol for sinus tachycardia Continue daily weights, strict I's and O's, low-sodium diet CHF clinic consulted Follow BMP No need to convert to succinate unless for ease of administration but not indicated necessarily in HFpEF (3) COPD with acute exacerbation: Plan: No baseline PFTs, non smoker but did report her parents 3pk day smokers in the house growing up. Will need outpt f/u Reports using albuterol nebulizer 1-2x/day, HFA at night. No sputum production Was given short course of steroids during this admission which were then stopped Continue O2 and check overnight pulse oximetry and two-step walk test prior to discharge (4) Elevated troponin: Plan: stable at 22 after 3 draws, no CP reported. ECG with normal sinus rhythm no ischemic changes Suspect demand ischemia in setting of cellulitis/infection and acute on chronic HFpEF (5) Renal insufficiency: Plan: CKD 3 baseline Patient says that she sees a stair builder outpatient, Dr. Tavarez at [facility] acute on chronic on admit, Cr bumped to 1.8 but improved w/ diuretics Creatinine stable today at 1.6 Okay to continue losartan and Farxiga as well as Lasix but converting to p.o. Lasix renal dose meds/avoid nephrotoxins as able Follow BMP (6) Depression: Plan: mood stable Continues on duloxetine 30mg daily (7) Gout: Plan: No acute issues Continue allopurinol (8) Hypertension: Plan: Blood pressures are controlled Continue Farxiga, Lasix, losartan, and metoprolol but increase metoprolol for rate control (9) Tachycardia: Plan: Has been in sinus tachycardia for many days ECG ordered and confirms sinus tachycardia Increase metoprolol to 75 Mg p.o. twice daily Plan VTE ppx: Lovenox SQ Disposition-continued stay but likely discharged home tomorrow. Two-step walk test in the morning and overnight pulse oximetry tonight to assess home O2 needs Admission and Anticipated Discharge Date Admission Date: September 05, 2023 Subjective Patient reports feeling better. Her noted to her that he has not seen her ankles and 54 years like he can now. Her lower extremity edema is much improved. She denies shortness of breath but remains on oxygen. She is eating and drinking, moving bowels 2-4 times a day since being on antibiotics. No other complaints. Physical Exam Constitutional: WD/WN, vitals as above Respiratory: normal respiratory effort, lungs clear to auscultation Cardiovascular: Rate/Rhythm: regular rhythm and + tachycardic Heart Sounds: no murmur Extremities: + edema (Trace pitting edema legs to the knees bilaterally) Chest (Breasts): Chest: normal inspection of chest Gastrointestinal (Abdomen): normal bowel sounds, soft, nontender, no hepatosplenomegaly Musculoskeletal: Extremities: no cyanosis and no clubbing Skin: + rash (Chronic venous stasis purpleish discoloration legs right greater than left) and + lesion (Right anterior leg-covered with dressing); no erythema Neurologic: moves all extremities and awake; no focal motor deficits Psychiatric: A+Ox3, euthymic affect Results & Data Results & Data Vital Signs (Past 12 Hours) Vital Signs Temp Pulse Resp BP Pulse Ox O2 Del Method O2 Flow Rate 09/11/23 16:33 36.8 C 121 H 18 120/80 94 Nasal Cannula 1 09/11/23 09:47 Nasal Cannula 1 09/11/23 08:12 36.5 C 113 H 17 135/80 93 Nasal Cannula 2 Laboratory Results CBC, BMP, magnesium, LFTs, BNP, blood cultures, wound culture, urine culture reviewed PG Care Time/CCT Total # of Minutes Spent Total Time Spent with Patient: Total time spent is greater than 50% in coordination of care (as documented) at patient's floor/unit and/or counseling patient: Coding Level of Care Code 78208 SUB INP/OBS CARE 2/35MIN Diagnoses Cellulitis of right lower leg L03.115 Acute on chronic diastolic congestive heart failure I50.33 Heart failure type: diastolic COPD with acute exacerbation J44.1 Elevated troponin R79.89 Renal insufficiency N28.9 Depression F32.A Gout M10.9 Hypertension I10 Tachycardia R00.0 (2) CHF exacerbation Heart failure type: diastolic Qualified Code(s): I50.33 - Acute on chronic diastolic (congestive) heart failure
[2023-09-11] MEDS: METOPROLOL TARTRATE 25 MG TAB PO SCH (19:49)
[2023-09-12] MEDS: ACETAMINOPHEN 325 MG TAB PO PRN ×2 (06:34→14:31)
[2023-09-12] MEDS: METOPROLOL TARTRATE 25 MG TAB PO SCH (08:28)
[2023-09-12] MEDS: FARXIGA 5 MG PO SCH (08:28)
[2023-09-12] MEDS: FUROSEMIDE 40 MG TAB PO SCH (08:29)
[2023-09-12] MEDS: LOSARTAN POTASSIUM 50 MG TAB PO SCH (08:29)
[2023-09-12] MEDS: ENOXAPARIN INJ 40 MG/0.4 ML SYR SQ SCH (08:29)
[2023-09-12] MEDS: cephALEXin 500 MG CAP PO SCH ×2 (08:29→12:50)
[2023-09-12] MEDS: DULoxetine HCL 30 MG CAP PO SCH (08:29)
[2023-09-12] MEDS: allopurinoL 100 MG TAB PO SCH (08:29)
[2023-09-12 08:42] LABS: Basophils # (auto) 0.04 K/uL (0.00-0.20); Basophils % (auto) 0.3 %; Eosinophils # (auto) 0.11 K/uL (0.00-0.50); Eosinophils % (auto) 0.8 %; Hematocrit (blood only) 45.6 % (37.0-47.0); Hemoglobin 13.8 g/dl (12.0-16.0); Immature Granulocytes # (auto) 0.09 K/uL (0.01-0.20); Immature Granulocytes % (auto) 0.7 %; Lymphocytes # (auto) 0.92 K/uL (1.20-3.40); Lymphocytes % (auto) 6.9 %; Mean Corpuscular Hemoglobin 28.2 pg (25.0-34.0); Mean Corpuscular Hgb Conc 30.3 g/dL (32.0-36.0); Mean Corpuscular Volume 93.3 fL (80.0-100.0); Mean Platelet Volume 10.5 fL (9.4-12.4); Monocytes # (auto) 1.31 K/uL (0.11-0.59); Monocytes % (auto) 9.8 %; Neutrophils # (auto) 10.85 K/uL (1.40-6.50); Neutrophils % (auto) 81.5 %; Platelet Count 259 K/uL (130-400); RDW Coefficient of Variation 14.4 % (11.5-14.5); RDW Standard Deviation 49.5 fL (36.4-46.3); Red Blood Count 4.89 M/uL (4.20-5.40); White Blood Count 13.32 K/ul (4.8-10.8)
[2023-09-12 09:04] LABS: BUN Creatinine Ratio 27.1 (10-20); Calcium 9.9 mg/dl (8.6-10.3); Creatinine Clr Calc Pharmacy 35.2 ml/min; Est GFR (African American) 32.9 ml/min; Est GFR (Non-African American) 28.4 ml/min; Magnesium 1.9 mg/dl (1.7-2.4); Potassium 4.5 mmol/L (3.5-5.1)
--- NOTE | 2023-09-12 12:58 | Discharge Summary ---
Discharge Summary Date of Service September 12, 2023 Notes For Next Care Provider Medication Changes From Visit Keflex 500mg po qid x 3 more days Changed lasix to 20mg daily rather than prn Increased metoprolol to 75mg po bid Admission HPI Per Admitting Provider Pt is a 72 yo female with PMH of COPD, fluid retention, CKD (stage unknown), and HTN presenting due to increasing SOB and right LE infection. Pt explains that she has been dealing with COPD for many years. In July, she was hospitalized for SOB and found to have pneumonia. This was treated with doxycycline. About 2-3 weeks ago, she noticed an increase in her SOB. It gets worse with activity, but she says she is not that active. It has progressively gotten worse. She does use nebulized and inhaled albuterol at home. No other inhalers. She does not use oxygen at home. She has never smoked. She has never been hospitalized for her COPD before. During her hospitalization in July, it was noted that she had a small blister on RLE. She was told not to break this. After she was discharged home, she woke up one morning and noticed that the blister had spread across the entire front of her leg. It was accidentally broken after she bumped her leg on her walker. Since then, the redness and drainage has spread. It is slightly painful. She believes this infection may be in relation to not taking her water pill for 11 days (she takes it as needed as to not harm her kidneys). In the ER, pt was hemodynamically stable with minimal tachycardia (100). Pt received methylpred 125mg x1, duoneb x1, zosyn x1, and dapto x1. She was also given mag 1g x2. Principal Dx & Hospital Course #1 = Principal Diagnosis (1) Cellulitis of right lower leg: Admitted w/ cellulitis RLE, secondary to open blister Leg xray negative for evidence for acute osteomyelitis, Venous doppler NEGATIVE for DVT Erythema resolved since admission, leukocytosis improving but was also on steroids for COPD, remains afebrile Dapto/Zosyn IV given in ER and was de-escalated to Ancef due to negative cultures-plan to finish out 10-day course of cephalexin on discharge-needs 3 more days Blood cultures, leg wound cx without growth [facility] for wound (2) (HFpEF) heart failure with preserved ejection fraction: With acute on chronic HFpEF with elevated BNP, hypoxia, chest x-ray with trace pleural effusions and cardiomegaly, lower extremity edema CT chest with small pericardial effusion, L pleural effusion Echocardiogram here with technically limited study with LVEF 60-65%, IVC mildly dilated Was diuresed with IV Lasix and peripheral edema is the best it has been in 54 years as per patient-with rising contraction alkalosis-converted to Lasix 40 Mg p.o. once daily and had slight bump in toe puller to 1.7--change to lasix 20mg po daily on discharge and take 40mg for weight gain> 2-3 lbs/day F/u [facility]F [facility]inic Weights and I's and O's are not accurate here On Farxiga at home for CHF Continue blood pressure control with losartan, metoprolol, Farxiga, and increased metoprolol for sinus tachycardia Continue daily weights, low-sodium diet, fluid restrict to 1500mL daily on discharge Follow BMP as an outpt No need to convert to succinate unless for ease of administration but not indicated necessarily in HFpEF (3) COPD with acute exacerbation: No baseline PFTs, non smoker but did report her parents 3pk day smokers in the house growing up. Will need outpt f/u Reports using albuterol nebulizer 1-2x/day, HFA at night. No sputum production Was given short course of steroids during this admission which were then stopped Required 2L on overnight pulse oximetry and two-step walk test showed she required 2LNC O2 with exertion but no O2 at rest (4) Elevated troponin: stable at 22 after 3 draws, no CP reported. ECG with normal sinus rhythm no ischemic changes Suspect demand ischemia in setting of cellulitis/infection and acute on chronic HFpEF (5) CKD (chronic kidney disease) stage 3, GFR 30-59 ml/min: CKD 3 baseline Patient says that she sees a transportation planning engineer outpatient, Dr. Tavarez at [facility] acute on chronic on admit, Cr bumped to 1.8 but improved w/ diuretics Creatinine stable today at 1.7 Okay to continue losartan and Farxiga as well as Lasix renal dose meds/avoid nephrotoxins as able Follow BMP as outpt with CHF clinic and Nephrology (6) Depression: mood stable Continues on duloxetine 30mg daily (7) Gout: No acute issues Continue allopurinol (8) Hypertension: Blood pressures are controlled Continue Farxiga, Lasix, losartan, and metoprolol but increase metoprolol for rate control (9) Tachycardia: Has been in sinus tachycardia for many days-improved with increasing metoprolol dose ECG ordered and confirms sinus tachycardia Increase metoprolol to 75 Mg p.o. twice daily Follow as outpt Plan VTE ppx: Lovenox SQ Disposition-stable for dc to home Discharge Exam Constitutional WD/WN, vitals as above Respiratory normal respiratory effort, lungs clear to auscultation Cardiovascular Rate/Rhythm: regular rhythm and + tachycardic (mild) Heart Sounds: no murmur Extremities: + edema (Trace pitting edema legs to the knees bilaterally) Chest (Breasts) Chest: normal inspection of chest Gastrointestinal (Abdomen) normal bowel sounds, soft, nontender, no hepatosplenomegaly Musculoskeletal Extremities: no cyanosis and no clubbing Skin + rash (Chronic venous stasis purplish discoloration legs right greater than left) and + lesion (Right anterior leg-5cm superficial venous ulcer,no erythema,mild drainage); no erythema Neurologic moves all extremities and awake; no focal motor deficits Psychiatric A+Ox3, euthymic affect Updated Medication List Medication Instructions Recorded Confirmed Type albuterol sulfate 90 mcg/actuation See Rx Instructions .Route .COMPLEX 09/04/23 09/04/23 History aerosol inhaler allopurinol 100 mg tablet 100 mg PO DAILY 09/04/23 09/04/23 History dapagliflozin propanediol 5 mg 5 mg PO DAILY 09/04/23 09/04/23 History tablet (Farxiga) duloxetine 30 mg capsule,delayed 30 mg PO DAILY 09/04/23 09/04/23 History release furosemide 20 mg tablet 20 mg PO DAILY PRN Fluid Retention 09/04/23 09/04/23 History losartan 50 mg tablet 50 mg PO DAILY 09/04/23 09/04/23 History cephalexin 500 mg capsule 500 mg PO QID 3 days #12 caps 09/12/23 Rx metoprolol tartrate 50 mg tablet 75 mg (1.5 x 50 mg) PO BID #90 tabs 09/12/23 Rx Hospital Stay Data Consultations 09/04/23 22:39 ED Decision to Admit Stat 09/10/23 13:28 [facility] Referral Routine Diagnostic Imagining Performed 01/23/24 20:30 CT angio chest PE protocol Stat 09/04/23 23:05 US venous doppler LE RT Stat Pending Results Patient Have Any Pending Studies at Discharge: No Discharge Instructions Given to Patient (Per Discharging Provider) Please finish out 3 more days of the oral antibiotic called cephalexin for your leg infection. An appointment will be made for you at [facility] for your leg wound. It is important for you to take the lasix 20mg each day and you can take an extra tablet to make 40mg on day where you gain more than 2-3 lbs. from one day to the next. Your metoprolol dose was increased to 75mg twice a day to improve your fast heart rate. This will also keep you from retaining fluid. Please follow up with the CHF Clinic as scheduled-they will keep an eye on your kidney function and potassium and sodium levels. Total Time Total Time Spent Total Time Spent (In Minutes): 40 min Coding Level of Care Code 38968 INP/OBS DISCH >30 MIN Diagnoses Cellulitis of right lower leg L03.115 (HFpEF) heart failure with preserved ejection fraction I50.30 COPD with acute exacerbation J44.1 Elevated troponin R79.89 CKD (chronic kidney disease) stage 3, GFR 30-59 ml/min N18.30 Depression F32.A Gout M10.9 Hypertension I10 Tachycardia R00.0
--- NOTE | 2023-09-12 15:05 | Electrocardiogram Report ---
Test Reason : Blood Pressure : / mmHG Vent. Rate : 123 BPM Atrial Rate : 123 BPM P-R Int : 150 ms QRS Dur : 076 ms QT Int : 312 ms P-R-T Axes : 024 -39 050 degrees QTc Int : 446 ms Sinus tachycardia Possible Left atrial enlargement Left axis deviation Abnormal ECG When compared with ECG of 04-SEP-2023 18:30, Vent. rate has increased BY 46 BPM Confirmed by Reilly Samayoa ([id number]) on 09/12/2023 3:05:01 PM Referred By: REFERRED SELF Confirmed By:Reilly Samayoa
== END 2023-09-12 16:14 | disposition home or self-care (01) | DRG 291 ==
LOC: ED 17:38 → 3N 09-05 00:14 → SUATTDRO 09-05 00:14 → 3N 09-05 02:44
DX: M10.9 Gout, unspecified; N18.9 Chronic kidney disease, unspecified; L03.115 Cellulitis of right lower limb; J44.1 Chronic obstructive pulmonary disease with (acute) exacerbation; F32.A Depression, unspecified; Z68.41 Body mass index [BMI] 40.0-44.9, adult; N17.9 Acute kidney failure, unspecified; I24.89 Other forms of acute ischemic heart disease; I13.0 Hypertensive heart and chronic kidney disease with heart failure and stage 1 through stage 4 chronic kidney disease, or unspecified chronic kidney disease; E83.42 Hypomagnesemia; I50.33 Acute on chronic diastolic (congestive) heart failure

== ENCOUNTER 2024-11-27 21:37 | Observation (INO) ==
[2024-11-27 21:44] VITALS: TEMP 98.1
[2024-11-27 22:05] LABS: Basophils # (auto) 0.04 K/uL (0.00-0.20); Basophils % (auto) 0.4 %; Eosinophils # (auto) 0.15 K/uL (0.00-0.50); Eosinophils % (auto) 1.5 %; Hematocrit (blood only) 42.9 % (37.0-47.0); Hemoglobin 12.9 g/dl (12.0-16.0); Immature Granulocytes # (auto) 0.03 K/uL (0.01-0.20); Immature Granulocytes % (auto) 0.3 %; Lymphocytes % (auto) 9.8 %; Mean Corpuscular Hemoglobin 28.8 pg (25.0-34.0); Mean Corpuscular Hgb Conc 30.1 g/dL (32.0-36.0); Mean Corpuscular Volume 95.8 fL (80.0-100.0); Monocytes # (auto) 1.06 K/uL (0.11-0.59); Monocytes % (auto) 10.4 %; Neutrophils # (auto) 7.92 K/uL (1.40-6.50); Neutrophils % (auto) 77.6 %; Platelet Count 184 K/uL (130-400); RDW Standard Deviation 49.5 fL (36.4-46.3); Red Blood Count 4.48 M/uL (4.20-5.40)
[2024-11-27 22:25] LABS: Alanine Aminotransferase 17 U/L (7-52); Albumin Globulin Ratio 1.3 (0.9-2); Albumin Level 3.7 gm/dl (3.4-5.0); Alkaline Phosphatase 76 U/L (34-104); Anion Gap 2 (3-11); Aspartate Aminotransferase 16 U/L (13-39); BUN Creatinine Ratio 22.2 (10-20); Bilirubin,Total 0.4 mg/dl (0.2-1.0); Blood Urea Nitrogen 30 mg/dl (6-23); Calcium 9.9 mg/dl (8.6-10.3); Carbon Dioxide 42 mmol/L (21-32); Chloride 100 mmol/L (98-107); Globulin 2.8 gm/dl (2.5-4.0); Glucose 114 mg/dl (70-99(Fasting)); Sodium 144 mmol/L (136-145); Total Protein 6.5 gm/dl (6.0-8.3)
[2024-11-27 22:32] LABS: Troponin I High Sensitivity 54.1 pg/ml (0-14)
[2024-11-27 22:36] LABS: Partial Thromboplastin Ratio 0.9; Partial Thromboplastin Time 23 Seconds (21-31); Prothrombin Time 10.5 Seconds (9.0-12.0)
--- NOTE | 2024-11-27 23:50 | Emergency Department Note ---
Impression & Plan Elevated troponin Admission ED Provider Note HPI: History obtained from patient. The patient is a 74-year-old female with history of heart failure with preserved ejection fraction, chronic kidney disease, COPD, morbid obesity, presents the emergency department with a chief complaint of an elevated heart rate. Patient states that she had an episode at approximately 8 PM where she felt like her heart was "racing". Patient states she has a home pulse ox that read her heart rate at about 140. Patient states this lasted for about 15 minutes and then resolved. On my assessment here in the ED the patient denies any current symptoms, she states she is feeling improved, she states she never had any chest pain. Patient is saturating well on arrival on her baseline 2 L nasal cannula oxygen and otherwise appears to be in no acute distress on my initial assessment. Patient denies any history of any known tachyarrhythmia. ROS: - Per HPI Differential Diagnosis: Acute CHF exacerbation, arrhythmia to include ventricular tachycardia, SVT, atrial fibrillation with RVR, ACS, amongst other potential pathologies. *Outpatient medications and allergy history reviewed. PE: General: Alert, morbidly obese HEENT: Normocephalic, trachea midline Eyes: Extraocular eye movement is intact, no scleral erythema Pulmonary: Clear to auscultation bilaterally, no wheezing Cardio: Regular rate and rhythm GI: Abdomen is soft to palpation : No suprapubic tenderness MSK: No evidence of trauma or malformation of the extremities, no edema Skin: No evidence of rash Neuro: Alert, no focal deficits Psychiatric: Cooperative INDEPENDENT INTERPRETATIONS: slinger sequins: (As interpreted by myself): - An order was placed for continuous cardiac monitoring - Patient was noted to be in sinus rhythm with a rate of 95 EKG: (As interpreted by myself): Rate: 100 Rhythm: Sinus rhythm Intervals: RI interval prolonged at 226 ms, otherwise within normal limits ST changes: No ST elevation Time: 2146 Chest x-ray: (As interpreted by myself): No focal infiltrate Interventions provided in ED: - IV Lasix, aspirin Medical Decision Making: IV was established and lab work obtained, patient was placed on cardiac cath technician. Lab work shows no leukocytosis, hemoglobin is stable at 12.9, platelet count is normal. CMP shows chronically elevated serum bicarbonate level today at 42, creatinine is stable at 1.35 which is near the patient's baseline, BNP is elevated at 255, chest x-ray does not show any obvious focal infiltrate or pleural effusion. On my assessment here in the ED the patient remained stable on her nasal cannula oxygen denies chest pain or shortness of breath. Given her initial troponin elevation a delta troponin was obtained and does show significant increase from 54 up to 81 which is well above the patient's baseline. Given this, patient will be placed for admission, she was in agreement to this plan. Unclear source for the patient's elevated troponin and palpitations earlier this evening, differential considerations would include arrhythmia or acute CHF exacerbation, amongst other considerations. I think the pending patient would benefit from admission on telemetry and likely repeat echocardiography. I discussed patient's presentation with the [facility] and the patient was placed for admission in stable condition for further care. Consultants/Discussions held with other healthcare providers: - Hospitalist, Dr. Smith Disposition discussion held by myself with: - Patient and family at the bedside Diagnosis: 1. Sensation of palpitations, acute 2. Elevated troponin, acute 3. History of CHF with preserved ejection fraction 4. Elevated BNP, acute Disposition: Admission Rosalino Cain DO Emergency Medicine Past Med/Surg History Problem List (Updated 11/28/24 @ 01:25 by Rosalino Cain DO) Elevated troponin (Acute) Hypersomnia Abnormal PFTs (pulmonary function tests) Morbid obesity Chronic respiratory failure with hypoxia Short of breath on exertion Hypertension Vitamin D deficiency Chronic anemia Stage 3b chronic kidney disease (HFpEF) heart failure with preserved ejection fraction CKD (chronic kidney disease) stage 3, GFR 30-59 ml/min Tachycardia Gout Depression Renal insufficiency (Acute) Cellulitis of right lower leg (Acute) Medical History COPD with acute exacerbation COPD (chronic obstructive pulmonary disease) Social History Smoking Status: Never smoker Hx Alcohol Use: No Hx Substance Use: No Preferred Language: Croatian Communication Ability: Effective Eight Section Blower Required: No Beliefs That Will Affect Care: None Current Living Situation: Spouse Feels Safe at Home: Yes Assistive Devices: Cane and Walker Allergies Allergies Allergy/AdvReac Type Severity Reaction Status Date / Time telmisartan [From Micardis] AdvReac Intermediate Gastrointestinal Unverified 11/10/24 10:02 Upset Home Meds Home Medications Medication Instructions Recorded Confirmed albuterol sulfate 90 mcg/actuation See Rx Instructions .Route .COMPLEX 09/04/23 11/11/24 aerosol inhaler allopurinol 100 mg tablet 100 mg PO DAILY 09/04/23 11/11/24 duloxetine 30 mg capsule,delayed 30 mg PO DAILY 09/04/23 11/11/24 release acetaminophen 650 mg 1,300 mg PO Q8H PRN 11/11/24 11/11/24 tablet,extended release cholecalciferol (vitamin D3) 10 20 mcg PO DAILY 11/11/24 11/11/24 mcg (400 unit) capsule Previous Rx's Medication Instructions Recorded furosemide 20 mg tablet 20 mg PO DAILY #30 tabs 03/24/24 losartan 50 mg tablet 50 mg PO DAILY #90 tabs 05/27/24 dapagliflozin propanediol 10 mg 10 mg PO DAILY #90 tabs 09/10/24 tablet fluticasone propionate 45 2 puff inhalation BID #12 grams 11/11/24 mcg-salmeterol 21 mcg/actuation HFA inhaler (Advair HFA) zolpidem 5 mg tablet 5 mg PO ONCE #2 tabs 11/11/24 metoprolol tartrate 100 mg tablet 100 mg PO BID #180 tabs 11/13/24 Results & Data (ED) Vital Signs Vital Signs - 24 hr 11/27/24 21:41 11/27/24 21:44 11/27/24 22:24 Temperature 36.7 C Temperature Source Temporal Artery Scan Pulse Rate 107 H 102 H Respiratory Rate 18 Respiratory Effort / Characteristics Non-Labored Spontaneous Respiratory Depth Normal Respiratory Pattern Regular Blood Pressure 149/84 H Blood Pressure Mean 105 Blood Pressure Position Sitting Pulse Oximetry 95 Oxygen Delivery Method Nasal Cannula Nasal Cannula Oxygen Flow Rate 2 2 Sepsis Recent Fever Within 48 Hours No Sepsis New/Unexplained Change in Mental Status N/A Sepsis Action Taken by Nursing No Action Required 11/27/24 22:27 11/27/24 22:33 11/27/24 22:52 Temperature Temperature Source Pulse Rate 103 H 103 H Respiratory Rate 20 28 H Respiratory Effort / Characteristics Respiratory Depth Respiratory Pattern Blood Pressure 150/121 H 165/103 H Blood Pressure Mean 130 123 Blood Pressure Position Pulse Oximetry 96 97 95 Oxygen Delivery Method Room Air Oxygen Flow Rate Sepsis Recent Fever Within 48 Hours Sepsis New/Unexplained Change in Mental Status Sepsis Action Taken by Nursing Laboratory Data 11/27/24 21:45 11/27/24 21:45 Lab Results 11/27/24 11/27/24 11/27/24 Range/Units 21:45 23:27 23:50 WBC 10.20 (4.8-10.8) K/ul RBC 4.48 (4.20-5.40) M/uL Hgb 12.9 (12.0-16.0) g/dl Hct 42.9 (37.0-47.0) % MCV 95.8 (80.0-100.0) fL MCH 28.8 (25.0-34.0) pg MCHC 30.1 L (32.0-36.0) g/dL RDW Std Deviation 49.5 H (36.4-46.3) fL RDW Coeff of Vean 14.0 (11.5-14.5) % Plt Count 184 (130-400) K/uL MPV 11.0 (9.4-12.4) fL Immature Gran % (Auto) 0.3 % Neut % (Auto) 77.6 % Lymph % (Auto) 9.8 % [place] % (Auto) 10.4 % Eos % (Auto) 1.5 % Baso % (Auto) 0.4 % Neut # (Auto) 7.92 H (1.40-6.50) K/uL Lymph # (Auto) 1.00 L (1.20-3.40) K/uL [place] # (Auto) 1.06 H (0.11-0.59) K/uL Eos # (Auto) 0.15 (0.00-0.50) K/uL Baso # (Auto) 0.04 (0.00-0.20) K/uL Immature Gran # (Auto) 0.03 (0.01-0.20) K/uL PT 10.5 (9.0-12.0) Seconds INR 1.0 (0.9-1.1) APTT 23 (21-31) Seconds PTT Ratio 0.9 Sodium 144 (136-145) mmol/L Potassium 5.0 (3.5-5.1) mmol/L Chloride 100 (98-107) mmol/L Carbon Dioxide 42 H* (21-32) mmol/L Anion Gap 2 L (3-11) BUN 30 H (6-23) mg/dl Creatinine 1.35 H (0.6-1.2) mg/dl Est Cr Clr Drug Dosing Not Reportable eGFR 41.50 BUN/Creatinine Ratio 22.2 H (10-20) Glucose 114 H (70-99(Fasting)) mg/dl Calcium 9.9 (8.6-10.3) mg/dl Total Bilirubin 0.4 (0.2-1.0) mg/dl AST 16 (13-39) U/L ALT 17 (7-52) U/L Alkaline Phosphatase 76 (34-104) U/L Troponin I High Sens 54.1 H* 81.2 H* D (0-14) pg/ml B-Natriuretic Peptide 255 H (0-100) pg/ml Total Protein 6.5 (6.0-8.3) gm/dl Albumin 3.7 (3.4-5.0) gm/dl Globulin 2.8 (2.5-4.0) gm/dl Albumin/Globulin Ratio 1.3 (0.9-2) Imaging Data Radiologist's Impression: Chest X-Ray 11/27/24 21:45 Exam(s): XR CXR 1 VIEW EXAM: XR Chest, 1 View CLINICAL HISTORY: Reason for exam: Chest pain, nonspecific. TECHNIQUE: Frontal view of the chest. Limited detail due to body habitus. COMPARISON: Chest x-ray 11/11/24. FINDINGS: Lungs: Mild scarring left lower lobe. No gross pleural effusion, consolidation, or significant interval change. Pleural space: No pneumothorax. Heart: Stable cardiomegaly. Mediastinum: Unremarkable. Bones/Soft Tissues: No acute abnormality. IMPRESSION: 1. No acute process, and no change. Electronically signed by: Lora Berger M.D. 11/28/24 00:46 AM Discharge Plan Visit Data Chief Complaint: Cardiac Assessment Stated Complaint: FAST HEART RATE , HISTORY OF CHF ED Provider: Rosalino Cain Discharge Problem: Elevated troponin Forms Stand Alone Forms: My [facility] Prescriptions Prescriptions: No Action furosemide 20 mg tablet 20 mg PO DAILY Qty: 30 6RF Rx Instructions: and take 40mg for weight gain > 3 lbs/day losartan 50 mg tablet 50 mg PO DAILY Qty: 90 3RF dapagliflozin propanediol 10 mg tablet 10 mg PO DAILY Qty: 90 3RF metoprolol tartrate 100 mg tablet 100 mg PO BID Qty: 180 3RF cholecalciferol (vitamin D3) 10 mcg (400 unit) capsule 20 mcg PO DAILY acetaminophen 650 mg tablet extended release 1,300 mg PO Q8H PRN fluticasone propion-salmeterol [Advair HFA] 45-21 mcg/actuation HFA aerosol inhaler 2 puff inhalation BID Qty: 12 3RF zolpidem 5 mg tablet 5 mg PO ONCE Qty: 2 0RF Rx Instructions: Take 1 tab on the night of sleep study allopurinol 100 mg tablet 100 mg PO DAILY albuterol sulfate 90 mcg/actuation HFA aerosol inhaler See Rx Instructions .ROUTE .COMPLEX Rx Instructions: per pt she uses at night duloxetine 30 mg capsule,delayed release(DR/EC) 30 mg PO DAILY Referrals Referrals: Diogo Johnston [Primary Care Provider] -
--- NOTE | 2024-11-28 00:47 | XRay Report ---
Exam(s): XR CXR 1 VIEW EXAM: XR Chest, 1 View CLINICAL HISTORY: Reason for exam: Chest pain, nonspecific. TECHNIQUE: Frontal view of the chest. Limited detail due to body habitus. COMPARISON: Chest x-ray 11/11/24. FINDINGS: Lungs: Mild scarring left lower lobe. No gross pleural effusion, consolidation, or significant interval change. Pleural space: No pneumothorax. Heart: Stable cardiomegaly. Mediastinum: Unremarkable. Bones/Soft Tissues: No acute abnormality. IMPRESSION: 1. No acute process, and no change. Electronically signed by: Lora Berger M.D. 11/28/24 00:46 AM
[2024-11-28 01:09] LABS: Troponin I High Sensitivity 81.2 pg/ml (0-14)
--- NOTE | 2024-11-28 01:28 | History & Physical Report ---
Date of Service November 28, 2024 Assessment & Plan (1) Tachycardia: (2) Elevated troponin: Plan 74-year-old female PMHx HFpEF, tachycardia, HTN, COPD, CKD, and depression presenting for elevated heart rate into the 140s with associated palpitations. ED evaluation reveals no leukocytosis, stable H&H, PT/INR WNL; CMP with CO2 42, anion gap 2, BUN 30, creatinine 1.35, ratio 22.4, glucose 114; troponin 54.1, 81.2 on repeat; BNP 255; CXR with no acute findings; EKG sinus rhythm with 1st degree AV block at 100 bpm.; Provided with furosemide 40 mg IV x 1 and aspirin 324 mg p.o. x 1 in ED. #Tachycardia/Elevated troponin Symptoms starting at ~ 1830 the night prior to arrival involving elevated heart rate (140s), shakiness, lasting approximately 15 to 20 minutes in duration; h/o HFpEF, HTN, and tachycardia. Follows with cardiology, most recent visit 08/18. Follows with heart failure clinic, most recent visit 02/28/2024. History of HFpEF, HTN, and tachycardia; on Farxiga, Lasix 20 mg as needed, losartan, and lopressor for cardiac conditions. Received aspirin 324mg po and Lasix 40mg IV in ED at admission. Did take total of 300mg of metoprolol prior to coming to hospital. During ED course, initial EKG appears sinus rhythm at 100 bpm. Comparison to child monitor revealing similar, and ~ 0100 with sudden drop from 100s to 70s for HR but maintained sinus rhythm. No history of Afib/flutter. - Dry weight 270lbs, states current weight 261lbs- Daily weights, I+Os - CBC grossly WNL; CMP w/ CO2 42; BNP 255 - Troponin 54.1, repeat 81.2, will trend to peak; EKG sinus with 1st degree AV block at 100 bpm, no signs ischemia - demand - EKG am - CXR without acute findings - Echo 08/2023 with EF 60 to 65%, grade 1 LV diastolic dysfunction and mild MAC - Lasix 20mg po as outpatient, received 40mg IV in ED - continue home dose - Consider cardiology consult in am given sudden discrepancy in HR but still in sinus - no consult at time of admission #Chronic hypoxic respiratory failure/COPD Follows with pulmonology, most recent visit 11/11/2024. No history of smoking but significant secondhand smoke exposure as a child. Brief episode of SOB with palpitations, resolved completely and on baseline O2 at time of admission. Albuterol inhaler and Advair inhaler at home regimen. 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 Home regimen of losartan and Farxiga. Noted that okay to take Lasix as appropriate per 06/26/2024 note. Does describe episode of "body shaking", ? chills vs jitters. - Creatinine is elevated on baseline labs (1.35) however it falls into patient's baseline, therefore no evidence of LISA on admission - Renally dose medications - UA pending - BMP am #Depression- Duloxetine #Gout- Allopurinol Dispo: Admit, med/tele VTE prophylaxis: Heparin This document was dictated utilizing [email or web address]. Please excuse any grammatical errors that may be secondary to use of this software. Admission and Anticipated Discharge Date Admission Date: 11/28/2024 History of Present Illness Chief Complaint: Elevated HR Primary Care Provider: Diogo Johnston 74-year-old female PMHx HFpEF, tachycardia, HTN, COPD, CKD, and depression presenting for elevated heart rate into the 140s with associated shakiness. Patient states around 1830 on the day prior to admission she was having a sudden onset of a racing heart rate into the 140s with associated shakiness. States that the shakiness was lasting all day but whenever her heart rate went up she felt that she had increased shaking.. States that the episode lasted approximately 15 to 20 minutes and then resolved. She did feel slightly lightheaded and though she was going to pass out during the duration of this episode. At this time, she checked her pulse ox which was at its lowest 89%, and her pulse which went up to 143. Patient states that she tried to calm down and rechecked her pulse but it remained elevated in the 130s. States that she was slightly off schedule with her metoprolol doses so she took 3 doses of metoprolol today and started to feel slightly better but continued to have some lightheadedness so wanted to be evaluated. States that she does have some SOB at baseline, not worsened the day of arrival. Overall denying any chest pain/pressure/tightness, palpitations, headache, abdominal pain, N/V/D/C, numbness/tingling, URI symptoms, LUTS, or F/C. ED evaluation reveals no leukocytosis, stable H&H, PT/INR WNL; CMP with CO2 42, anion gap 2, BUN 30, creatinine 1.35, ratio 22.4, glucose 114; troponin 54.1, 81.2 on repeat; BNP 255; CXR with no acute findings; EKG sinus rhythm with 1st degree AV block at 100bpm.; Provided with furosemide 40 mg IV x 1 and aspirin 324 mg p.o. x [address] Please see Dr[address] Smith's attestation for adjustments/additions to treatment plan. Allergies Allergy/AdvReac Type Severity Reaction Status Date / Time telmisartan [From Micardis] AdvReac Intermediate Gastrointestinal Unverified 11/10/24 10:02 Upset Home Medications Medication Instructions Recorded Confirmed Type albuterol sulfate 90 mcg/actuation 2 puff inhalation UD PRN Shortness 09/04/23 11/28/24 History aerosol inhaler Of Breath Or Wheezing allopurinol 100 mg tablet 100 mg PO DAILY 09/04/23 11/28/24 History duloxetine 30 mg capsule,delayed 30 mg PO DAILY 09/04/23 11/28/24 History release losartan 50 mg tablet 50 mg PO DAILY #90 tabs 05/27/24 11/28/24 Rx dapagliflozin propanediol 10 mg 10 mg PO DAILY #90 tabs 09/10/24 11/28/24 Rx tablet acetaminophen 650 mg 1,300 mg PO Q8H PRN Pain 11/11/24 11/28/24 History tablet,extended release cholecalciferol (vitamin D3) 10 20 mcg PO DAILY 11/11/24 11/28/24 History mcg (400 unit) capsule metoprolol tartrate 100 mg tablet 100 mg PO BID #180 tabs 11/13/24 11/28/24 Rx furosemide 20 mg tablet 40 mg (2 x 20 mg) PO 2XWK #10 tabs 11/28/24 Rx Past Med/Surg History Problem List Elevated troponin (Acute) Hypersomnia Abnormal PFTs (pulmonary function tests) Morbid obesity Chronic respiratory failure with hypoxia Short of breath on exertion Hypertension Vitamin D deficiency Chronic anemia Stage 3b chronic kidney disease (HFpEF) heart failure with preserved ejection fraction CKD (chronic kidney disease) stage 3, GFR 30-59 ml/min Tachycardia Gout Depression Renal insufficiency (Acute) Cellulitis of right lower leg (Acute) Medical History COPD with acute exacerbation COPD (chronic obstructive pulmonary disease) Social History Smoking Status: Never smoker Hx Alcohol Use: No Hx Substance Use: No Preferred Language: Kazakh Communication Ability: Effective Crystal Finisher Required: No Beliefs That Will Affect Care: None Current Living Situation: Spouse and Parent Feels Safe at Home: Yes Assistive Devices: Glasses and Walker Review of Systems Review of Systems: All systems reviewed & are unremarkable except as noted in Subjective Physical Exam Physical Exam: General: No acute distress Skin: Warm and dry Head: Normocephalic, atraumatic Eyes: PERRL, conjunctivae clear, sclera non-icteric ENT: External ear and ear canal without swelling; nose atraumatic; good dentition, tongue normal appearance, pharynx normal Neck: Supple, no LAD Cardio: RRR, no M/G/R, S1 and S2 normal Resp: No respiratory distress, Lungs CTA in all lobes bilaterally, no wheezes, rales, or rhonchi Abdomen: Soft, symmetric, nontender; No masses or hepatosplenomegaly; Bowel sounds normoactive MSK: No deformities; pulses palpable and equal; no edema. Neuro: Awake, alert; Sensation intact bilaterally; CN grossly intact Psych: Appropriate mood and affect; good judgement and insight. Results & Data Results & Data Vital Signs (Past 12 Hours) Vital Signs Temp Pulse Resp BP Pulse Ox O2 Del Method O2 Flow Rate 11/27/24 22:52 95 Room Air 11/27/24 22:33 103 H 28 H 165/103 H 97 11/27/24 22:27 103 H 20 150/121 H 96 11/27/24 22:24 102 H 11/27/24 21:44 Nasal Cannula 2 11/27/24 21:41 36.7 C 107 H 18 149/84 H 95 Nasal Cannula 2 Laboratory Results 11/27/24 11/27/24 11/27/24 23:50 23:27 21:45 WBC 10.20 RBC 4.48 Hgb 12.9 Hct 42.9 MCV 95.8 MCH 28.8 MCHC 30.1 L RDW Std Deviation 49.5 H RDW Coeff of Evan 14.0 Plt Count 184 MPV 11.0 Immature Gran % (Auto) 0.3 Neut % (Auto) 77.6 Lymph % (Auto) 9.8 [place] % (Auto) 10.4 Eos % (Auto) 1.5 Baso % (Auto) 0.4 Neut # (Auto) 7.92 H Lymph # (Auto) 1.00 L [place] # (Auto) 1.06 H Eos # (Auto) 0.15 Baso # (Auto) 0.04 Immature Gran # (Auto) 0.03 PT 10.5 INR 1.0 APTT 23 PTT Ratio 0.9 Sodium 144 Potassium 5.0 Chloride 100 Carbon Dioxide 42 H* Anion Gap 2 L BUN 30 H Creatinine 1.35 H Est Cr Clr Drug Dosing Not Reportable eGFR 41.50 BUN/Creatinine Ratio 22.2 H Glucose 114 H Calcium 9.9 Total Bilirubin 0.4 AST 16 ALT 17 Alkaline Phosphatase 76 Troponin I High Sens 81.2 H* D 54.1 H* B-Natriuretic Peptide 255 H Total Protein 6.5 Albumin 3.7 Globulin 2.8 Albumin/Globulin Ratio 1.3 Diagnostic Findings Chest X-Ray 11/27/24 21:45 Exam(s): XR CXR 1 VIEW EXAM: XR Chest, 1 View CLINICAL HISTORY: Reason for exam: Chest pain, nonspecific. TECHNIQUE: Frontal view of the chest. Limited detail due to body habitus. COMPARISON: Chest x-ray 11/11/24. FINDINGS: Lungs: Mild scarring left lower lobe. No gross pleural effusion, consolidation, or significant interval change. Pleural space: No pneumothorax. Heart: Stable cardiomegaly. Mediastinum: Unremarkable. Bones/Soft Tissues: No acute abnormality. IMPRESSION: 1. No acute process, and no change. Electronically signed by: Lora Berger M.D. 11/28/24 00:46 AM Medications Administered Aspirin 324 mg p.o. x 1 Furosemide 40 mg IV x 1 ECG Additional Comments: Sinus rhythm with first-degree AV block, occasional PVCs, indeterminate axis, pulmonary disease pattern, ST-T wave abnormality 100 bpm, PA 226, QRS 8, QT/QTc 350/412, PRT */0/213 Code Status & VTE Plan Code Status Full Supervising Physician Co-Signing Physician Notes I personally saw and examined the patient. I independently reviewed the labs, EKG, imaging, problem list, medication list, past medical history and family history. I verified all mcgraw points and agree with Sharath Holt PA-C with the following exceptions and/or additions: 74 year old female presents to the ER with shaking and palpitations with HR elevation in 140s. Currently back to her baseline. O/E HS RRR, no murmurs, Chest CTAB A/P Tachyarrhythmia - appears to have converted to NSR at 1am without intervention, unclear a. flutter vs atrial tachycardia. Monitor on telemetry and consider cardiology consult. No significant CHF - will resume her usual lasix dosing. PG Care Time/CCT Total # of Minutes Spent Total Time Spent with Patient: Total time spent is greater than 50% in coordination of care (as documented) at patient's floor/unit and/or counseling patient: Coding Level of Care Code 89146 INT INP/OBS CARE 3/MIN Diagnoses Tachycardia R00.0 Elevated troponin R79.89
[2024-11-28] MEDS: ASPIRIN CHEW 324 MG PO STA (01:40)
[2024-11-28] MEDS: FUROSEMIDE 40 MG/4 ML VIAL IV ONE (01:40)
[2024-11-28 02:40] LABS: Magnesium 1.3 mg/dl (1.7-2.4); Thyroid Stimulating Hormone 2.517 uIu/ml (0.300-4.500)
[2024-11-28] MEDS ORDERED: FUROSEMIDE 20 MG TAB PO PRN (02:49)
[2024-11-28] MEDS ORDERED: ALUMINUM/MAGNESIUM SUSP 30 ML UDC PO PRN (02:49)
[2024-11-28] MEDS ORDERED: ONDANSETRON INJ 2 MG/ML 2 ML VIAL IV PRN (02:49)
[2024-11-28] MEDS ORDERED: POLYETHYLENE (MIRALAX) 17 GM PACK PO PRN (02:49)
[2024-11-28] MEDS ORDERED: MELATONIN 3 MG TAB PO PRN (02:49)
[2024-11-28] MEDS ORDERED: ALBUTEROL HFA 8 GM INHALER INH PRN (02:49)
[2024-11-28 02:57] LABS: Appearance Urine Clear (Clear); Bacteria Urine Automated None Seen (None Seen); Bilirubin Urine Negative (Negative); Blood Urine Negative (Negative); Color Urine Yellow; Epithelial Cell Urine Auto 0-2 /hpf (0-2); Glucose Urine UA 2+ (Negative); Ketones Urine Negative (Negative); Leukocyte Esterase Urine Trace (Negative); Nitrite Urine Negative (Negative); Protein Urine Negative (Negative); RBC Urine Automated 0-2 /hpf (0-2); Specific Gravity Urine 1.013 (1.000-1.030); Urobilinogen Urine Negative (Negative)
[2024-11-28 06:27] LABS: Troponin I High Sensitivity 67.4 pg/ml (0-14)
[2024-11-28] MEDS: HEPARIN SOD 5,000 UNIT/0.5 ML VIAL SQ SCH (06:39)
[2024-11-28] MEDS: MAGNESIUM SULFATE / D5W 1 GM/100 ML BAG IV SCH (07:36)
[2024-11-28] MEDS: DULoxetine HCL 30 MG CAP PO SCH (08:43)
[2024-11-28] MEDS: LOSARTAN POTASSIUM 50 MG TAB PO SCH (08:43)
[2024-11-28] MEDS: METOPROLOL TARTRATE 100 MG TAB PO SCH (08:43)
[2024-11-28] MEDS: allopurinoL 100 MG TAB PO SCH (08:43)
[2024-11-28 11:05] LABS: Calcium 10.2 mg/dl (8.6-10.3); Creatinine Clr Calc Pharmacy 55.6 ml/min; Potassium 4.4 mmol/L (3.5-5.1)
[2024-11-28 11:23] VITALS: BP 178/128; RESP 20; O2SAT 93
[2024-11-28] MEDS: ACETAMINOPHEN 500 MG TAB PO PRN (12:03)
--- NOTE | 2024-11-28 12:17 | Cardiology Consultation ---
Date of Consultation November 28, 2024 Assessment & Plan (1) Tachycardia: (2) Elevated troponin: (3) (HFpEF) heart failure with preserved ejection fraction: Plan 1. Tachycardia: Review of her telemetry here in the hospital suggest that she does have an ectopic atrial tachycardia at times. The overall heart rate is low. She does not appear to be symptomatic. The episode last night could possibly be related, but my feeling this is more likely artifactual given her "shaking" at the time. No severe symptoms even at that time. I do not think she requires any additional inpatient evaluation or change in therapy at this point. No indication for anticoagulation. Not a arrhythmia that likely responds easily to catheter-based therapy. She can continue metoprolol. 2. Elevated troponin: Very mild elevation. Likely related to any tachycardia and documented hypoxia. I do not think this is direct marketing representative of acute coronary syndrome and I do not think he requires additional evaluation in this regard. 3. Heart failure with preserved ejection fraction: She does monitor her weight at home and actually appears to have lost weight. She does not take her diuretic frequently because this requires running to the bathroom which is difficult for her. She does have an element of lower extremity edema. Difficult to know if her pulmonary symptoms are cardiac in nature. Lung examination will not be normal. However, she is feeling fine I think if she resumes her usual daily dose of Lasix we can have her follow-up in our heart failure clinic as previously scheduled. She will continue Farxiga as well. History of Present Illness Reason for Consultation: Tachycardia Requesting Physician: Alfredo Attending Physician: Viv Robertson MD History of Present Illness The patient is a 74-year-old woman with a history of heart failure preserved eje ction fraction who presented to the emergency room due to concerns of an elevated heart rate. The patient states that last evening after returning from the bathroom she was somewhat "shaky" and had some breathing difficulty. She has a pulse oximeter at home which she uses frequently. She checked her oxygen and the level was low approximately 89%. At that time she felt that she also had an elevated heart rate around 140 bpm. Mild dizziness. No chest pain. She presented to the emergency room for an evaluation. She was found to have a mild sinus tachycardia at the time of presentation. Her other symptoms appear to have resolved. She is very sedentary individual who spends most of her time in a chair. She is able to ambulate at home but this is difficult due to orthopedic problems. She also has severe lung disease requiring supplemental oxygen at all times. She generally is not aware of elevated heart rates. As noted before she uses her pulse oximeter fairly frequently and has not noted elevated heart rates at other times. Provide is using her supplemental oxygen and her saturations appear to be in the 90s most of the time. She does have an element of lower extremity ed akil. She has not have orthopnea but does not sleep flat in bed for other reasons. Allergies Allergy/AdvReac Type Severity Reaction Status Date / Time telmisartan [From Micardis] AdvReac Intermediate Gastrointestinal Unverified 11/10/24 10:02 Upset Home Medications Medication Instructions Recorded Confirmed Type albuterol sulfate 90 mcg/actuation 2 puff inhalation UD PRN Shortness 09/04/23 11/28/24 History aerosol inhaler Of Breath Or Wheezing allopurinol 100 mg tablet 100 mg PO DAILY 09/04/23 11/28/24 History duloxetine 30 mg capsule,delayed 30 mg PO DAILY 09/04/23 11/28/24 History release losartan 50 mg tablet 50 mg PO DAILY #90 tabs 05/27/24 11/28/24 Rx dapagliflozin propanediol 10 mg 10 mg PO DAILY #90 tabs 09/10/24 11/28/24 Rx tablet acetaminophen 650 mg 1,300 mg PO Q8H PRN Pain 11/11/24 11/28/24 History tablet,extended release cholecalciferol (vitamin D3) 10 20 mcg PO DAILY 11/11/24 11/28/24 History mcg (400 unit) capsule metoprolol tartrate 100 mg tablet 100 mg PO BID #180 tabs 11/13/24 11/28/24 Rx furosemide 20 mg tablet 40 mg (2 x 20 mg) PO 2XWK #10 tabs 11/28/24 Rx Patient History Medical History COPD with acute exacerbation COPD (chronic obstructive pulmonary disease) Social History Smoking Status: Never smoker Hx Alcohol Use: No Hx Substance Use: No Preferred Language: Japanese Communication Ability: Effective 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 Mood affect appear normal. She answered all questions appropriately. Obese. Using supplemental oxygen HEENT: Sclerae are anicteric. Pupils are equal and reactive to light and accommodation. Extraocular movements were intact. Neuro: Cranial nerves intact Lungs: Lungs are clear to auscultation bilaterally. There are no rales wheezes or rhonchi. She has normal respiratory effort without use of accessory muscles. There is normal pulmonary excursion. Cardiac: The rhythm was regular. S1 and S2 were normal. There are no murmurs on examination. The PMI was not markedly displaced on palpation. Abdomen: Obese Extremities: Patient has bilateral radial pulses that are equal in intensity. There is no evidence cyanosis or clubbing. Moderate lower extremity edema Skin: There are no rashes noted on examination today. Results & Data Vital Signs (Past 12 Hours) Vital Signs Pulse Pulse Resp BP Pulse Ox O2 Del Method O2 Flow Rate 11/28/24 11:21 71 20 178/128 H 93 Nasal Cannula 2 11/28/24 09:53 79 18 166/109 H 94 Nasal Cannula 2 11/28/24 07:40 80 14 149/105 H 97 Nasal Cannula 2 11/28/24 07:11 82 11/28/24 06:00 79 21 154/91 H 98 Nasal Cannula 2 11/28/24 04:20 77 19 157/95 H 96 Nasal Cannula 2 11/28/24 03:16 Nasal Cannula 2 11/28/24 03:00 85 18 141/99 H 98 Nasal Cannula 2 11/28/24 02:22 76 11/28/24 02:00 70 18 162/102 H 97 Nasal Cannula 2 Laboratory Results Abnormal Lab Results 11/27/24 11/27/24 11/27/24 21:45 23:24 23:27 WBC 10.20 RBC 4.48 Hgb 12.9 Hct 42.9 MCV 95.8 MCH 28.8 MCHC 30.1 L RDW Std Deviation 49.5 H RDW Coeff of Evan 14.0 Plt Count 184 MPV 11.0 Immature Gran % (Auto) 0.3 Neut % (Auto) 77.6 Lymph % (Auto) 9.8 Jewell % (Auto) 10.4 Eos % (Auto) 1.5 Baso % (Auto) 0.4 Neut # (Auto) 7.92 H Lymph # (Auto) 1.00 L Jewell # (Auto) 1.06 H Eos # (Auto) 0.15 Baso # (Auto) 0.04 Immature Gran # (Auto) 0.03 PT 10.5 INR 1.0 APTT 23 PTT Ratio 0.9 Sodium 144 Potassium 5.0 Chloride 100 Carbon Dioxide 42 H* Anion Gap 2 L BUN 30 H Creatinine 1.35 H Est Cr Clr Drug Dosing Not Reportable eGFR 41.50 BUN/Creatinine Ratio 22.2 H Glucose 114 H Calcium 9.9 Magnesium 1.3 L Total Bilirubin 0.4 AST 16 ALT 17 Alkaline Phosphatase 76 Troponin I High Sens 54.1 H* 81.2 H* D B-Natriuretic Peptide Total Protein 6.5 Albumin 3.7 Globulin 2.8 Albumin/Globulin Ratio 1.3 TSH 2.517 Urine Color Yellow Urine Appearance Clear Urine pH 5.0 Ur Specific [place] 1.013 Urine Protein Negative Urine Glucose (UA) 2+ H Urine Ketones Negative Urine Blood Negative Urine Nitrite Negative Urine Bilirubin Negative Urine Urobilinogen Negative Ur Leukocyte Esterase Trace H Urine WBC (Auto) 6-10 H Urine RBC (Auto) 0-2 U Hyaline Cast (Auto) 3-5 H U Epithel Cells (Auto) 0-2 Urine Bacteria (Auto) None Seen 11/27/24 11/28/24 23:50 05:30 WBC RBC Hgb Hct MCV MCH MCHC RDW Std Deviation RDW Coeff of Evan Plt Count MPV Immature Gran % (Auto) Neut % (Auto) Lymph % (Auto) Jewell % (Auto) Eos % (Auto) Baso % (Auto) Neut # (Auto) Lymph # (Auto) Jewell # (Auto) Eos # (Auto) Baso # (Auto) Immature Gran # (Auto) PT INR APTT PTT Ratio Sodium 145 Potassium 4.4 Chloride 98 Carbon Dioxide 36 H Anion Gap 11 BUN 29 H Creatinine 1.16 Est Cr Clr Drug Dosing 55.6 eGFR 49.78 BUN/Creatinine Ratio 25.0 H Glucose 101 H Calcium 10.2 Magnesium Total Bilirubin AST ALT Alkaline Phosphatase Troponin I High Sens 67.4 H* D B-Natriuretic Peptide 255 H Total Protein Albumin Globulin Albumin/Globulin Ratio TSH Urine Color Urine Appearance Urine pH Ur Specific [place] Urine Protein Urine Glucose (UA) Urine Ketones Urine Blood Urine Nitrite Urine Bilirubin Urine Urobilinogen Ur Leukocyte Esterase Urine WBC (Auto) Urine RBC (Auto) U Hyaline Cast (Auto) U Epithel Cells (Auto) Urine Bacteria (Auto) Diagnostic Findings Chest x-ray obtained this admission not reveal any acute cardiopulmonary process PG Care Time/CCT Total # of Minutes Spent Total Time Spent with Patient: Total time spent is greater than 50% in coordination of care (as documented) at patient's floor/unit and/or counseling patient: Coding Level of Care Code 71163 INT INP/OBS CARE 3/75MIN Diagnoses Tachycardia R00.0 Elevated troponin R79.89 Chronic heart failure with preserved ejection fraction I50.32 Heart failure chronicity: chronic (3) (HFpEF) heart failure with preserved ejection fraction Heart failure chronicity: chronic Qualified Code(s): I50.32 - Chronic diastolic (congestive) heart failure
--- NOTE | 2024-11-28 14:20 | Electrocardiogram Report ---
Test Reason : Blood Pressure : */* mmHG Vent. Rate : 100 BPM Atrial Rate : 100 BPM P-R Int : 226 ms QRS Dur : 8 ms QT Int : 320 ms P-R-T Axes : * 0 213 degrees QTcB Int : 412 ms Sinus rhythm with 1st degree A-V block with occasional Premature ventricular complexes Incomplete right bundle branch block Poor R wave progression, consider anterior MO vs. lead placement vs. LVH Abnormal ECG Confirmed by Jaylon Soler ([id number]) on 11/28/2024 2:19:59 PM Referred By: REFERRED SELF Confirmed By: Jaylon Soler
[2024-11-28 15:57] VITALS: PULSE 75
--- NOTE | 2024-11-28 18:40 | Discharge Summary ---
Discharge Summary Date of Service November 28, 2024 Principal Dx & Hospital Course #1 = Principal Diagnosis (1) (HFpEF) heart failure with preserved ejection fraction: (2) Elevated troponin: (3) Tachycardia: (4) CKD (chronic kidney disease) stage 3, GFR 30-59 ml/min: Plan 74-year-old female PMHx HFpEF, tachycardia, HTN, COPD, CKD, and depression presenting for elevated heart rate into the 140s with associated tremors. ED evaluation reveals no leukocytosis, stable H&H, PT/INR WNL; CMP with CO2 42, anion gap 2, BUN 30, creatinine 1.35, ratio 22.4, glucose 114; troponin 54.1, 81.2 on repeat; BNP 255; CXR with no acute findings; EKG sinus rhythm with 1st degree AV block at 100 bpm.; Provided with furosemide 40 mg IV x 1 and aspirin 324 mg p.o. x 1 in ED. #Tachycardia/Elevated troponin/HFpEF/HTN - patient presented to ED on 11/27/24 after episode of feeling "shaky", checked HR on home pulse oximeter and reported HR in the 140s. stated episode lasted approx. 15-20 mins. - on arrival, patient was asymptomatic. ECG sinus rhythm with 1st degree AV block at 100 bpm. CXR negative for acute findings. - initial troponin elevated at 54.1, repeat was 81.2, downtrended to 67.4. labs significant for elevated BNP at 255. - ASA 324mg PO x 1 and IV Lasix 40mg x 1 given in ED - home medications for cardiac conditions include: metoprolol 100mg BID, losartan 50mg daily, farxiga 10mg daily, lasix 20mg PO PRN edema - established with cardiology, last visit 08/18/24. farxiga increased at that time. established HF clinic in the past, last visit 02/2024 - patient reports she had symptom improvement with IV Lasix, reports chronic orthopnea, otherwise asymptomatic. - reached out to patient's president of the [place] who recommended consult, ordered and patient was seen by cardiology with the following recommendations: review of telemetry suggest ectopic atrial tachycardia at times, does not need additional inpatient evaluation or change in therapy at this point. no indication for anticoagulation. continue metoprolol. mild troponin elevated likely related to any tachycardia and documented hypoxia. does not believe to be ACS/additional evaluation not required currently resume outpatient lasix, farxiga, follow up HF clinic. - patient reportly takes lasix very infrequently, about once in the past 2 weeks - she is reluctant to take daily due to difficulty ambulating (uses walker) and need for frequent urination with use - she is agreeable to re initiating lasix at a more tolerable regimen of 40mg 2x/week, along with low sodium diet, daily weights, and close outpatient follow up - referral to CHF clinic ordered - f/u pcp within 1 week - f/u cardiology as scheduled - seek emergency care if sx acutely worsen #Chronic hypoxic respiratory failure/COPD -on chronic o2 therapy 2L continuous at baseline, has not required increase from baseline -reported brief episode SOB with shaking, no additional symptoms since that time, denies additional pulmonary sx. -CO2 level elevated at 42 on admission, repeat BMP with CO2 at 36 (appears to be at patient's baseline) -has been evaluated by hearing aide technician, most recent visit 11/11/2024. -home medications include: advair and albuterol inhaler PRN- patient has been noncompliant with advair. -encouraged medication compliance -encouraged to follow up with sleep study and pulmonology as scheduled upon disc harge #CKD, Stage 3b - established with nephrology, last visit 06/2024. 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 - baseline creatinine 1.5-1.7 - creatinine 1.35 on admission; repeat BMP with creatinine 1.16 #Depression- Duloxetine #Gout- Allopurinol Patient is medically stable for discharge home with close outpatient follow up with HF clinic and PCP f/u within 1 week. F/U cardiology, pulmonology, nephrology as scheduled Return to ED if symptoms acutely worsen Notes For Next Care Provider Medication Changes From Visit added furosemide 40 mg twice a week Admission HPI Per Admitting Provider 74-year-old female PMHx HFpEF, tachycardia, HTN, COPD, CKD, and depression presenting for elevated heart rate into the 140s with associated shakiness. Patient states around 1830 on the day prior to admission she was having a sudden onset of a racing heart rate into the 140s with associated shakiness. States that the shakiness was lasting all day but whenever her heart rate went up she felt that she had increased shaking.. States that the episode lasted approximately 15 to 20 minutes and then resolved. She did feel slightly lightheaded and though she was going to pass out during the duration of this episode. At this time, she checked her pulse ox which was at its lowest 89%, an d her pulse which went up to 143. Patient states that she tried to calm down and rechecked her pulse but it remained elevated in the 130s. States that she was slightly off schedule with her metoprolol doses so she took 3 doses of metoprolol today and started to feel slightly better but continued to have some lightheadedness so wanted to be evaluated. States that she does have some SOB at baseline, not worsened the day of arrival. Overall denying any chest pain/pressure/tightness, palpitations, headache, abdominal pain, N/V/D/C, numbness/tingling, URI symptoms, LUTS, or F/C. ED evaluation reveals no leukocytosis, stable H&H, PT/INR WNL; CMP with CO2 42, anion gap 2, BUN 30, creatinine 1.35, ratio 22.4, glucose 114; troponin 54.1, 81.2 on repeat; BNP 255; CXR with no acute findings; EKG sinus rhythm with 1st degree AV block at 100bpm.; Provided with furosemide 40 mg IV x 1 and aspirin 324 mg p.o. x [address] see Dr[address] Smith's attestation for adjustments/additions to treatment plan. Admission Exam Per Admitting Provider General: No acute distress Skin: Warm and dry Head: Normocephalic, atraumatic Eyes: PERRL, conjunctivae clear, sclera non-icteric ENT: External ear and ear canal without swelling; nose atraumatic; good dentition, tongue normal appearance, pharynx normal Neck: Supple, no LAD Cardio: RRR, no M/G/R, S1 and S2 normal Resp: No respiratory distress, Lungs CTA in all lobes bilaterally, no wheezes, rales, or rhonchi Abdomen: Soft, symmetric, nontender; No masses or hepatosplenomegaly; Bowel sounds normoactive MSK: No deformities; pulses palpable and equal; no edema. Neuro: Awake, alert; Sensation intact bilaterally; CN grossly intact Psych: Appropriate mood and affect; good judgement and insight. Discharge Exam General: no acute distress; non-toxic appearing; well-nourished; cooperative HEENT: normocephalic, atraumatic; no scleral icterus; PERRLA w/ EOMs intact; vision and hearing grossly intact Neck: supple; no lymphadenopathy; trachea midline Skin: warm, dry without signs of tenting; no cyanosis; no rashes, bruising, lesions, or erythema noted CV: chest wall NTP; RRR; S1/S2 normal; no murmurs/rubs/gallops; pulses intact and symmetric at radial, DP, and PT Lungs: (+) O2 via nasal cannula; no acute respiratory distress; symmetrical chest wall expansion; CTA bilaterally without wheezes, rales, rhonchi ABD: Soft, NTP; BS present; no rebound/guarding; no distention MSK: no tics or fasciculations; R LE edematous with venous stasis. LLE trace edema. Neuro: A&Ox3; normal mood and affect; fluent speech; no focal deficits; sensation grossly intact in the LEs b/l Discharge Plan Discharge Items Patient Disposition: Home - Self-Care Reason For Visit: TACHYCARDIA,ELEVATED TROP Discharge Diagnosis: CHF Activity: Resume your previous activity Non-emergency contact: Primary Care Provider Call non-emergency contact if: you have any medication questions and your symptoms worsen Follow-up/Referrals: Diogo Johnston [Primary Care Provider] - (PLEASE CALL YOUR PRIMARY CARE PROVIDER TO SCHEDULE A HOSPITAL FOLLOW-UP APPOINTMENT WITHIN 7-10 DAYS) Diet: Low Sodium (2gm) Addtl Attending Provider Instructions: Mrs. Lincoln, Rodo were admitted to the hospital for elevated heart rate. You had labs, ECG, imaging, and cardiology consult during your stay. Your troponin level was elevated when you arrived at the ED, this level has since decreased. You had an elevation in your BNP level and improved symptoms with IV Lasix (water pill), which indicate an excess amount of fluid in the body. You do have a history of CHF, and you likely experiencing an acute exacerbation of heart failure. It is recommended that upon discharge you follow up with the Heart Failure clinic, as well as start taking furosemide 40mg by mouth twice/week. It is recommended that you follow a low sodium diet and weigh yourself daily. Please keep a log of your daily weights, and call the heart failure clinic or PCP for a weight gain greater than 2 lbs. It is also recommended that you follow up with your PCP within 1 week for evaluation. Please follow up with steel crane operator and president of the [place] as scheduled. Pending Studies at Discharge: No Stand-Alone Forms: My [facility] Medications and DC Order Prescriptions: New furosemide 20 mg Tablet 40 mg PO 2XWK Qty: 10 0RF Continued losartan 50 mg tablet 50 mg PO DAILY Qty: 90 3RF dapagliflozin propanediol 10 mg tablet 10 mg PO DAILY Qty: 90 3RF metoprolol tartrate 100 mg tablet 100 mg PO BID Qty: 180 3RF cholecalciferol (vitamin D3) 10 mcg (400 unit) capsule 20 mcg PO DAILY acetaminophen 650 mg tablet extended release 1,300 mg PO Q8H PRN (Reason: Pain) allopurinol 100 mg tablet 100 mg PO DAILY albuterol sulfate 90 mcg/actuation HFA aerosol inhaler 2 puff inhalation UD PRN (Reason: Shortness Of Breath Or Wheezing) duloxetine 30 mg capsule,delayed release(DR/EC) 30 mg PO DAILY Discontinued furosemide 20 mg tablet 20 mg PO DAILY PRN (Reason: PT USES FOR EDEMA) Discharge Orders: Discharge Order (Routine); Ordered 11/28/24 Ordered By: Mally Fuentes Discharge Order- CHF (Routine); Ordered 11/28/24 Ordered By: Mally Ramirez/Other Patient Handouts: Heart Failure Flare Up Signs, Heart Failure: Tra cking Your Weight, Coping with Heart Failure, Heart Failure Make Changes Diet, Heart Failure Dc, Heart Failure Sleep Problems, Heart Failure Care, Heart Failure Post Hospital, Heart Failure: Breathe More Easily, Heart Failure Admission Data Admit Date/Time: 11/28/24 02:33 Attending Provider: Viv Robertson Admit Provider: Efe Smith Primary Care Provider: Diogo Johnston Other Providers: Efe Smith; Ailyn Aquino; Rey Levy; Jovanny Lyn; Reilly Samayoa; Diogo Santos; Mohit Moulton; Darrell Scruggs Jr; Quang Osman; Sera Flores; Joanie Ravi; Jaylon Heredia; Jaylon Soler; Corwin Hollins; Mari Mendoza; Corwin Jaramillo; Andrea Waldrop; Darnell Colón Other Interventions: Discharge Summary Assessment (RN) Last Done: 11/28/24 14:55 Hospital Stay Data Consultations 11/28/24 01:17 ED Decision to Admit Stat 11/28/24 08:27 Consult Cardiology Routine 11/28/24 17:01 [facility] [place] CHF Program Referral Routine Pending Results Patient Have Any Pending Studies at Discharge: No Discharge Instructions Given to Patient (Per Discharging Provider) Rodo Mendez were admitted to the hospital for elevated heart rate. You had labs, ECG, imaging, and cardiology consult during your stay. Your troponin level was elevated when you arrived at the ED, this level has since decreased. You had an elevation in your BNP level and improved symptoms with IV Lasix (water pill), which indicate an excess amount of fluid in the body. You do have a history of CHF, and you likely experiencing an acute exacerbation of heart failure. It is recommended that upon discharge you follow up with the Heart Failure clinic, as well as start taking furosemide 40mg by mouth twice/week. It is recommended that you follow a low sodium diet and weigh yourself daily. Please keep a log of your daily weights, and call the heart failure clinic or PCP for a weight gain greater than 2 lbs. It is also recommended that you follow up with your PCP within 1 week for evaluation. Please follow up with steel crane operator and president of the [place] as scheduled. Supervising Physician Co-Signing Physician Notes I have reviewed vital signs, chart notes, labs and imaging. I have personally seen, evaluated and examined the patient. I have also discussed the management of the patient with the EDDIE and I agree with the exam findings documented in the history and physical examination and the documented assessment and plan unless otherwise stated below. On my exam lenses lungs are fairly clear she has some mild bibasilar crackles, heart is regular she is not tachycardic no murmur, 23+ bilateral lower extremity edema agree with the plan above Total Time Total Time Spent Total Time Spent (In Minutes): >30 Coding Level of Care Code 62993 INP/OBS DISCH >30 MIN Diagnoses Chronic heart failure with preserved ejection fraction I50.32 Heart failure chronicity: chronic Elevated troponin R79.89 Tachycardia R00.0 CKD (chronic kidney disease) stage 3, GFR 30-59 ml/min N18.30
== END 2024-11-28 16:06 | disposition home or self-care (01) ==
LOC: EDINP 21:37 → ED 21:37 → SUATTDRO 11-28 02:33 → 2W 11-28 11:44